=== PATIENT | female | born 1950 | race Caucasian/White ===

== ENCOUNTER 2018-07-28 09:20 | Inpatient (IN) | payer BC, MEDICARE ==
--- OUTSIDE RECORDS SUMMARY | 2018-07-28 09:41 | XMS REPORT | Continuity of Care Document ---
:1950 External Reference #:[id number] Author Name Gloria Manuel Care Team Providers Name Role Phone Bjorn Connor MD Primary Care Physician Unavailable Payers Type Date Identification Numbers Payment Provider Subscriber Effective: Policy Number: [id number] Medicare Blue Ppo [employer] 2015 Group Number: [id number] [address] [address] PayID: [id number] SEEMA Back [id number] Onset: 1991 PayID: [id number] Efis Genesis Marie Daniel [address] [place] [address] PayID: [id number] Medicare D - Drug Plan Genesis Sanchez Advance Directives Type Date Description Status Comment Other Directive 04/25/2015 Power Of Machine Maintenance Repairer Current and Verified Other Directive 04/25/2015 Health Care Proxy Current and Verified Other Directive 04/25/2015 Living Will Current and Verified Problems Date Description Provider Status Onset: 06/13/2015 Essential hypertension Kelsie Lee M.D. Active Onset: 12/10/2015 Hypocalcemia Bjorn Connor M.D. Active Onset: 01/16/2016 Secondary hyperparathyroidism Bjorn Connor M.D. Active Onset: 01/16/2016 Asthma without status asthmaticus Bjorn Connor M.D. Active Onset: 02/15/2016 Disorder of bursa of shoulder Bjorn Connor M.D. Active region Onset: 02/26/2016 Adhesive capsulitis of shoulder Jose Alfredo Mason MD Active Onset: 03/12/2016 Mild recurrent major depression Bjorn Connor M.D. Active Onset: 03/12/2016 Morbid obesity Bjorn Connor M.D. Active Onset: 06/25/2016 Ulcerative colitis Bjorn Connor M.D. Active Onset: 09/17/2016 Peripheral vertigo Bjorn Connor M.D. Active Onset: 10/08/2016 Arthralgia of the pelvic region and Bjorn Connor M.D. Active thigh Onset: 10/22/2016 Candidiasis Bjorn Connor M.D. Active Onset: 03/25/2017 Hypo-osmolality and or hyponatremia Bjorn Connor M.D. Active Onset: 12/04/2017 Anemia Bjorn Connor M.D. Active Onset: 12/04/2017 Thoracic and lumbosacral neuritis Bjorn Connor M.D. Active Onset: 03/05/2018 Encounter for other preprocedural Bjorn Connor M.D. Active examination Onset: 04/14/2018 Obesity Bjorn Connor M.D. Active Onset: 06/13/2015 Preoperative cardiovascular Kelsie Lee M.D. 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 Work Status Not Currently Working Hand Dominance Right-handed ETOH Use Rarely consumes wine 1 glass on special occasions Tobacco Use Start: Unknown Patient has never smoked Recreational Drug Use Denies Drug Use Smoking Status Reviewed: 07/28/18 Patient has never smoked Exercise Type/Frequency Exercises sporadically Allergies, Adverse Reactions, Alerts Date Description Reaction Status Severity Comments 07/25/2013 Codeine Active 12/14/2015 Hair/ Skin And Nails Contact dermatitis Active Mild 01/07/2016 Tape Active 01/07/2016 Adhesive Active Medications Medication Date Status Form Strength Qnty SIG Indications Ordering Provider Meclizine HCL 04/29 Active Tablets 25mg 1 tablet H81.393 every 8 Pachikara hours as MMarkieDMarkie needed for vertigo Duloxetine HCL 03/[address] 60mg 30cap 1 by mouth F33.0 Part s every day Vahid Connor Cyanocobalamin 03/09 Active Solution 1000mcg/M 50uni 1 L ts milliliter Geeta parikh M.D. intramuscu lar [id number] (please give multiuse vials per pateint request) Cpap Mask And 02/17 Active Device 1unit cpap Benny s supplies - Patria, [employer] headgear, cushion, tubing, filters, for sleep apnea dx 780.57 Syringe 2-3 ML 01/08 Active Misc 3ml 30uni to use for ts b12 Geeta injections Vahid 1ML Hydramatic Specialist 01/01 Active Kit 26G X 12uni i inj Imbler Tray 09/08" 1 ML ts weekly Pachikara Bevel 26GX1/2" , ToryDMarkie Fluoxetine HCL 05/07 Active Capsules 20mg 30cap 1 by mouth F33.0 s every day Vahid Connor Proair HFA 03/12 Active Aerosol 108(90Bas 25.5g 2 puffs ih J45.909 e) m every 4 Pachikara mcg/Act hours as , M.DMarkie needed Hydrocodone-Aceta 02/14 Active Tablets 5-325mg 30tab 1 tab M15.0 Bjorn minophen s every 8h Soniyaika as needed , Vahid Symbicort 01/15 Active Aerosol 160-4.5mc 30.6g 2 puff J45.998 Neal g/Act m twice a D. maisha Sevilla M.D.,FACP Metoprolol 12/13 Active Tablets ER 50mg 90tab 1 by mouth Bjorn Succinate ER 24HR s every day Geeta Aden M.D. Aspirin [address] 81mg po qd Unknown /0000 Vitamin D3 00 Active Capsules 5000Unit 30cap 1 po qd Unknown /0000 s Zinc 00 Active 50mg 1 tablet Unknown /0000 po daily Phenytoin Sodium Active Capsules 100mg 360ca 4 by mouth Treva Extended / ps once a day Vahid Fajardo Poly-Iron 150 Active Capsules 150-25-1m 1 by mouth Unknown Forte /0000 g-mcg-mg every day Vitamin C Active Tablets 500mg 1 by mouth Unknown /0000 every day Magnesium Active Capsules 500mg once a day Unknown Potassium Active Tablets ER 20Meq 30tab 1 by mouth Ashanti Chloride ER /0000 s every day Garcia, [employer]TER Fluoxetine HCL Active Capsules 10mg 30cap 1 by mouth Ashanti /0000 s every day Garcia, [employer]TER Calcium Citrate Active Chewtabs 500-500mg 2 tabs Unknown Chewy Bite /0000 -Unit three times a day Furosemide Active Tablets 20mg 90tab 1 by mouth Imbler s every Pachikara morning , M.D. Amlodipine Active Tablets 5mg 90tab take 1 Neal Besylate / s tablet by Georges Sevilla, mouth once M.D.,FACP daily Erythromycin 05/11 Hx Ointment 5mg/GM 3.500 apply 1cm H10.9 gm 3-4 times Pachikara - to both , M.D. 07/28 eyes Cyanocobalamin 01/12 Hx Solution 1000mcg/M 100ml 1 Z00.01 L milliliter Pachikara - s , M.D. 04/28 intramuscu lar [id number] Macrobid 10/20 Hx Capsules 100mg 14cap 1 by mouth R30.0 Neal s twice a D. Roel, - day M.D.,FACP 10/27 Erythromycin 07/01 Hx Ointment 5mg/GM 3.500 apply 1cm H01.009 gm 3-4 times Pachikara - to both , M.D. 10/21 eyes Gabapentin 05/01 Hx Capsules 100mg 30cap take 1 at R51 Treva s bedtime Scotty, - M.D. 01/05 Cyanocobalamin 03/09 Hx Solution 1000mcg/M 50ml 1 L milliliter Pachikara - s , M.D. 03/09 intramuscu lar [id number] (please give multiuse vials per pateint request) Clotrimazole/Beta 10/22 Hx Cream 1-0.05% 30gm apply B37.9 Imbler methasone under Pachikara Dipropionate - breast , M.D. 02/05 twice daily Fluconazole 10/08 Hx Tablets 150mg 2tabs once daily B37.3 Pachikara - , M.D. 12/23 Fluoxetine HCL 09/18 Hx Capsules 10mg 30cap 1 by mouth F33.0 s every day Pachika - , M.D. 10/23 Fluoxetine HCL 09/17 Hx Capsules 10mg 30cap once daily F33.0 Imbler (PMDD) s Pachikara - , M.D. 09/18 Meclizine HCL 09/17 Hx Tablets 12.5mg 60tab 1-2 tab H81.393 s two times Pachikara - a day , M.D. 04/28 Neomycin/Polymyxi 06/26 Hx Suspension 3.5-00214 10ml 5 drops 3 Bjorn n/Hydrocortisone -1 times Pachikara (Otic) - daily , M.D. 07/02 x7 Ciprodex 06/25 Hx Suspension 0.3-0.1% 7.500 4 drops H60.311 ml twice a Pachikara - day 7 days , M.D. 06/26 stop inreased iritation Sertraline HCL 05/07 Hx Tablets 50mg 30tab 1 by mouth s every day Pachika - , M.D. 05/07 Fluoxetine HCL 03/12 Hx Capsules 10mg 30cap 1 tab once F33.0 s daily. Pachika - , M.D. 05/07 Advair Diskus 01/21 Hx Aerosol 100-50mcg 60uni 1 /Dose ts inhalation Pachikara - twice , M.D. 01/22 daily Sertraline HCL 01/15 Hx Tablets 100mg 90tab 1 by mouth F33.0 s every day Pachmuna - , M.D. 03/12 Feosol 12/13 Hx Tablets 200(65Fe) 30tab once daily D64.9 mg s Pachmuna Vahid Mckeon 01/05 Sertraline HCL 12/13 Hx Tablets 50mg 30tab 1.5 by F33.0 s mouth Pachika - every day , Vahid 01/15 Hydrocodone-Aceta 12/13 Hx Tablets 5-325mg 60tab 1 tab M15.0 Bjorn s every 12h Pachmuna - as needed , Vahid 02/14 Metoprolol 12/05 Hx Tablets ER 25mg 30tab 1 by mouth Hussein Succinate 24HR s every day [place]ian, - [employer]TER 12/13 Lialda 11/[address] 1.2gm 180ta 2 tab qd I10 omar Mckeon M.D. 11/22 Sertraline HCL 11/22 Hx Tablets 25mg 30tab 1 by mouth F33.0 s every day Geeta Mckeon M.D. 12/13 Lialda 11/[address] 1.2gm 180ta 2 tab K51.90 omar daily Geeta Mckeon M.D. 07/28 Hydrocodone 11/22 Hx Tablets 2.5-325mg 45tab 12 h prrn M15.0 Bjorn Bitartrate/ s Geeta Mckeon M.D. 12/13 Calcium Carbonate 11/22 Hx Tablets 1250(500C 120ta 2 tab by A) mg omar mouth Geeta - twice a , Vahid Metoprolol 11/24 Hx Tablets ER 25mg 90tab 1 po qd Kelsie Succinate 24HR s Mike Lee M.D. 06/12 Multivitamins Hx Capsules 30cap 1 capsule Unknown /0000 s daily - 11/22 Vitamin C TR/Amee Hx Tablets ER 500mg Unknown Hips /0000 - 12/13 Slow Fe Hx Tablets ER 142(45Fe) 1 by mouth Unknown /0000 mg every day - 01/[address] 60mg 90cap 1 by mouth Part s every day Geeta Mckeon M.D. 07/01 Calcium 600+D3 00 Hx Tablets 600-400mg 2 po qd Unknown /0000 -Unit - 11/22 Arthrotec 75 00/ Hx Tablets DR 75-0.2mg 180ta 1 po bid Unknown /0000 bs - 11/22 Cyanocobalamin Hx Solution 1000mcg/M 50ml 1 Bjorn / L milliliter Geeta parikh M.D. 02/05 intramusc lar [id number] (please give multiuse vials per pateint request) Forteo 00 Hx 20mcg once daily Unknown /0000 - 06/12 Simvastatin Hx Tablets 10mg 30tab 1 po qhs Unknown / s - 06/12 Hydrochlorothiazi Hx Tablets 25mg 1 tablet Raghav de /0000 po daily , - Jennifer, 06/12 Prolia Hx Solution 60mg/ml 60 mg sc Unknown / q6mon ( on - hold 08/1905/23/16) Magnesium 00 Hx Tablets 250mg 1 by mouth Unknown /0000 every day - 08/19 Advair Diskus 00/00 Hx Aerosol 250-50mcg 1 puff by Unknown /0000 /Dose mouth - twice a Combivent 00 Hx Aerosol 20-100mcg 1unit 1 puffs Imbler Respimat /0000 /Act s 4-6 times Pachikara - daily Vahid carrillo 01/15 Hair/Skin/Nails 00/00 Hx Tablets 1 - 2 by Unknown /0000 mouth - every day 12/13 Acetaminophen-Cod 0000 Hx Tablets 300-30mg 1 tab by Unknown eine #3 /0000 mouth q 12 - hrs prn 12/13 Sertraline HCL 0000 Hx Tablets 100mg 1 by mouth Unknown /0000 every day - 10/23 Augmentin 00/00 Hx Tablets 875mg one by Unknown /0000 mouth - every 12 / hours ten days Medications Administered in Office Medication Date Status Form Strength Qnty SIG Indications Ordering Provider Influenza,Unspe 06/10/ Administered Injection Unknown cified 2015 Triamcinolone 02/25/ Administered Injection Kary (Kenalog) 2015 ELVIA Mojica Immunizations CPT Code Status Date Vaccine Reaction Lot # [id number] Given 04/14/2018 Tdap - 4P9CL Tetanus/Diptheria/Acellular Pertussis 16991 Given 06/29/2017 Influenza Virus Vaccine, Quadrivalent, Split, Preservative Free 50430 Given 10/22/2016 Zoster (Zostavax) no immediate reaction [id number] noted .. 10401 Given 10/22/2016 Pneumococcal Conjugate pt tolerated well. no [id number] Vaccine 13 Valent For immediate reaction Intramuscular Use noted .. Vital Signs Date Vital Result Comment 07/28/2018 8:14am Height 60 inches 5'0" Weight 166.00 lb Heart Rate 82 /min BP Systolic 119 mmHg BP Diastolic 84 mmHg Body Temperature 99.0 F O2 % BldC Oximetry 97 % BMI (Body Mass Index) 32.4 kg/m2 05/11/2018 1:23pm Height 60 inches 5'0" Weight 176.00 lb Heart Rate 65 /min BP Systolic 100 mmHg BP Diastolic 76 mmHg Body Temperature 98.7 F O2 % BldC Oximetry 96 % BMI (Body Mass Index) 34.4 kg/m2 04/29/2018 1:37pm Height 60 inches 5'0" Weight 172.00 lb Heart Rate 68 /min BP Systolic 100 mmHg BP Diastolic 62 mmHg Respiratory Rate 16 /min BMI (Body Mass Index) 33.6 kg/m2 04/14/2018 8:25am Height 60 inches 5'0" Weight 175.00 lb Heart Rate 53 /min BP Systolic Sitting 126 mmHg BP Diastolic Sitting 83 mmHg O2 % BldC Oximetry 97 % BMI (Body Mass Index) 34.2 kg/m2 03/02/2018 9:07am Height 60 inches 5'0" Weight 176.00 lb Heart Rate 70 /min BP Systolic 126 mmHg BP Diastolic 80 mmHg Body Temperature 97.0 F O2 % BldC Oximetry 97 % BMI (Body Mass Index) 34.4 kg/m2 01/12/2018 9:53am Height 60 inches 5'0" Weight 176.00 lb Heart Rate 55 /min BP Systolic 118 mmHg BP Diastolic 78 mmHg O2 % BldC Oximetry 97 % BMI (Body Mass Index) 34.4 kg/m2 01/06/2018 10:48am Height 61 inches 5'1" Weight 175.12 lb Heart Rate 60 /min BP Systolic 110 mmHg BP Diastolic 78 mmHg Respiratory Rate 16 /min BMI (Body Mass Index) 33.1 kg/m2 12/04/2017 9:51am Height 61 inches 5'1" Weight 171.38 lb Heart Rate 66 /min BP Systolic Sitting 118 mmHg BP Diastolic Sitting 78 mmHg O2 % BldC Oximetry 97 % BMI (Body Mass Index) 32.4 kg/m2 10/20/2017 3:39pm Weight 177.00 lb Heart Rate 70 /min BP Systolic 132 mmHg BP Diastolic 83 mmHg Body Temperature 98.2 F O2 % BldC Oximetry 98 % 07/09/2017 2:32pm Height 61 inches 5'1" Weight 187.00 lb Heart Rate 76 /min BP Systolic Sitting 122 mmHg BP Diastolic Sitting 88 mmHg Respiratory Rate 14 /min O2 % BldC Oximetry 98 % BMI (Body Mass Index) 35.3 kg/m2 Neck Circumference in inches 13.5 07/01/2017 8:19am Weight 188.00 lb Heart Rate 74 /min BP Systolic Sitting 122 mmHg BP Diastolic Sitting 82 mmHg 05/01/2017 9:29am Height 61 inches 5'1" Weight 181.00 lb Heart Rate 68 /min BP Systolic Sitting 126 mmHg BP Diastolic Sitting 80 mmHg Respiratory Rate 16 /min BMI (Body Mass Index) 34.2 kg/m2 03/25/2017 9:13am Height 60 inches 5'0" Weight 188.00 lb Heart Rate 61 /min BP Systolic Sitting 118 mmHg BP Diastolic Sitting 72 mmHg Body Temperature 97.5 F O2 % BldC Oximetry 95 % BMI (Body Mass Index) 36.7 kg/m2 02/25/2017 1:34pm Height 60 inches 5'0" Weight 187.38 lb Heart Rate 66 /min BP Systolic Sitting 134 mmHg BP Diastolic Sitting 88 mmHg Respiratory Rate 16 /min BMI (Body Mass Index) 36.6 kg/m2 02/06/2017 8:19am Height 60 inches 5'0" Weight 181.00 lb Heart Rate 64 /min BP Systolic Sitting 130 mmHg BP Diastolic Sitting 90 mmHg Respiratory Rate 14 /min BMI (Body Mass Index) 35.3 kg/m2 12/24/2016 8:45am Weight 179.00 lb Heart Rate 64 /min BP Systolic 102 mmHg BP Diastolic 66 mmHg Body Temperature 96.9 F O2 % BldC Oximetry 98 % 10/22/2016 9:22am Weight 186.25 lb Heart Rate 61 /min BP Systolic Sitting 138 mmHg BP Diastolic Sitting 80 mmHg Body Temperature 97.8 F O2 % BldC Oximetry 95 % 10/10/2016 9:11am Height 60 inches 5'0" Weight 185.00 lb Heart Rate 58 /min BP Systolic 123 mmHg BP Diastolic 83 mmHg BMI (Body Mass Index) 36.1 kg/m2 10/08/2016 8:42am Height 62 inches 5'2" Weight 192.00 lb BMI (Body Mass Index) 35.1 kg/m2 09/17/2016 8:02am Height 62 inches 5'2" Weight 190.00 lb Heart Rate 57 /min BP Systolic 110 mmHg BP Diastolic 64 mmHg Body Temperature 98.1 F O2 % BldC Oximetry 97 % BMI (Body Mass Index) 34.7 kg/m2 08/27/2016 2:48pm Height 62 inches 5'2" Weight 193.00 lb Heart Rate 68 /min BP Systolic Sitting 118 mmHg BP Diastolic Sitting 84 mmHg Respiratory Rate 14 /min BMI (Body Mass Index) 35.3 kg/m2 08/20/2016 9:05am Height 62 inches 5'2" Weight 189.00 lb Heart Rate 72 /min BP Systolic Sitting 122 mmHg BP Diastolic Sitting 86 mmHg Respiratory Rate 14 /min BMI (Body Mass Index) 34.6 kg/m2 07/02/2016 8:49am Weight 205.00 lb Heart Rate 62 /min BP Systolic Sitting 124 mmHg BP Diastolic Sitting 82 mmHg Respiratory Rate 15 /min Body Temperature 98.4 F O2 % BldC Oximetry 98 % 06/25/2016 8:47am Weight 211.00 lb Heart Rate 76 /min BP Systolic Sitting 138 mmHg BP Diastolic Sitting 80 mmHg Respiratory Rate 15 /min Body Temperature 97.8 F O2 % BldC Oximetry 98 % 06/19/2016 8:54am Weight 208.00 lb Heart Rate 68 /min BP Systolic Sitting 128 mmHg BP Diastolic Sitting 84 mmHg Respiratory Rate 15 /min Body Temperature 98.4 F O2 % BldC Oximetry 98 % 06/10/2016 10:13am Height 61 inches 5'1" Weight 213.00 lb Heart Rate 68 /min Respiratory Rate 18 /min Pain Level 8 BMI (Body Mass Index) 40.2 kg/m2 05/23/2016 11:06am Height 61 inches 5'1" Weight 216.00 lb Heart Rate 65 /min BP Systolic Sitting 112 mmHg BP Diastolic Sitting 72 mmHg Respiratory Rate 16 /min O2 % BldC Oximetry 95 % BMI (Body Mass Index) 40.8 kg/m2 05/09/2016 9:27am Height 61 inches 5'1" Weight 215.00 lb Heart Rate 60 /min Respiratory Rate 16 /min Pain Level 7 BMI (Body Mass Index) 40.6 kg/m2 05/07/2016 2:00pm Height 59.5 inches 4'11.50" Weight 220.00 lb Heart Rate 66 /min BP Systolic Sitting 136 mmHg BP Diastolic Sitting 85 mmHg Respiratory Rate 15 /min Body Temperature 97.3 F O2 % BldC Oximetry 98 % BMI (Body Mass Index) 43.7 kg/m2 03/19/2016 2:09pm Heart Rate 63 /min BP Systolic Sitting 120 mmHg BP Diastolic Sitting 60 mmHg Body Temperature 96.4 F O2 % BldC Oximetry 98 % 03/12/2016 9:18am Height 61 inches 5'1" Weight 221.00 lb Heart Rate 74 /min BP Systolic Sitting 142 mmHg BP Diastolic Sitting 98 mmHg Body Temperature 98.4 F O2 % BldC Oximetry 95 % BMI (Body Mass Index) 41.8 kg/m2 02/26/2016 2:35pm Height 61 inches 5'1" Weight 216.00 lb Pain Level 9 at worst BMI (Body Mass Index) 40.8 kg/m2 02/15/2016 8:47am Heart Rate 69 /min BP Systolic Sitting 151 mmHg BP Diastolic Sitting 92 mmHg Body Temperature 97.5 F 01/16/2016 7:49am Heart Rate 71 /min BP Systolic Sitting 124 mmHg BP Diastolic Sitting 77 mmHg Body Temperature 98.1 F O2 % BldC Oximetry 99 % 01/07/2016 9:22am Height 61 inches 5'1" Weight 216.38 lb Heart Rate 76 /min BP Systolic Sitting 128 mmHg BP Diastolic Sitting 80 mmHg Respiratory Rate 18 /min BMI (Body Mass Index) 40.9 kg/m2 12/14/2015 8:16am Heart Rate 70 /min BP Systolic Sitting 148 mmHg BP Diastolic Sitting 87 mmHg Body Temperature 98.2 F O2 % BldC Oximetry 95 % 11/23/2015 8:43am Height 60.25 inches 5'0.25" Weight 204.00 lb Heart Rate 89 /min BP Systolic Sitting 162 mmHg BP Diastolic Sitting 100 mmHg Body Temperature 98.6 F O2 % BldC Oximetry 98 % BMI (Body Mass Index) 39.5 kg/m2 06/13/2015 12:53pm Height 60.25 inches 5'0.25" Weight 210.00 lb without shoes Heart Rate 78 /min BP Systolic Sitting 128 mmHg LA lg cuff BP Diastolic Sitting 90 mmHg LA lg cuff BP Systolic Standing 136 mmHg LA lg cuff BP Diastolic Standing 90 mmHg LA lg cuff Respiratory Rate 17 /min BMI (Body Mass Index) 40.7 kg/m2 Ejection Fraction 67% date 12/01/12 ECHO Results Test Date Facility Test Result H/L Range Note Laboratory test 05/12/2018 [facility] Ferritin 10.1 ng/mL Low 11-[address] [place] [address] [phone] CBC Auto Diff 05/12/2018 [facility] White Blood 4.3 10^3/uL N 3.5-10.[address] [place] [address] [phone] Red Blood Count 3.93 10^6/uL Low 4.00-5.40 Hemoglobin 12.4 g/dL N 12.0-16.0 Hematocrit 38 % N 35-47 Mean Corpuscular Volume 96 fL N 80-97 Mean Corpuscular Hemoglobin 32 pg High 27-31 Mean Corpuscular HGB Conc 33 g/dL N 31-36 Red Cell Distribution Width 14 % N 10.5-15 Platelet Count 249 10^3/uL N 150-450 Mean Platelet Volume 7.6 um3 N 7.4-10.4 Abs Neutrophils 2.9 10^3/uL N 1.5-7.7 Abs Lymphocytes 0.8 10^3/uL Low 1.0-4.8 Abs Monocytes 0.4 10^3/uL N 0-0.8 Abs Eosinophils 0.1 10^3/uL N 0-0.6 Abs Basophils 0.1 10^3/uL N 0-0.2 Abs Nucleated RBC 0 10^3/uL Granulocyte % 67.2 % N 38-83 Lymphocyte % 19.6 % Low 25-47 Monocyte % 9.2 % High 0-7 Eosinophil % 2.6 % N 0-6 Basophil % 1.4 % N 0-2 Nucleated Red Blood Cells % 0 Iron & Iron Binding 05/12/2018 [facility] Iron 59 g/dL N 50- [address] [place] [address] [phone] Unsaturated Iron Binding 379 g/dL Total Iron Binding Capacity 438 g/dL N 250-450 Transferrin 313 mg/dL N 203-362 % Iron Saturation 13 % Low 15-55 Comp Metabolic Panel 05/12/2018 [facility] Sodium 139 mmol/L N 135-[address] [place] [address] [phone] Potassium 4.5 mmol/L N 3.5-5.0 Chloride 109 mmol/L N 101-111 Co2 Carbon Dioxide 25 mmol/L N 22-32 Anion Gap 5 mmol/L N 2-11 Glucose 91 mg/dL N 70-100 Blood Urea Nitrogen 26 mg/dL High 6-24 Creatinine 1.19 mg/dL High 0.51-0.95 BUN/Creatinine Ratio 21.8 High 8-20 Calcium 9.3 mg/dL N 8.6-10.3 Total Protein 6.6 g/dL N 6.4-8.9 Albumin 4.0 g/dL N 3.2-5.2 Globulin 2.6 g/dL N 2-4 Albumin/Globulin Ratio 1.5 N 1-3 Total Bilirubin 0.30 mg/dL N 0.2-1.0 Alkaline Phosphatase 145 U/L High 34-104 Alt 19 U/L N 7-52 Ast 20 U/L N 13-39 Egfr Non- 45.4 >60 Egfr 54.9 >60 1 CBC Auto Diff 04/08/2018 [facility] White Blood 4.6 10^3/uL N 3.5-10.[address] [place] [address] [phone] Red Blood Count 3.72 10^6/uL Low 4.00-5.40 Hemoglobin 11.8 g/dL Low 12.0-16.0 Hematocrit 36 % N 35-47 Mean Corpuscular Volume 97 fL N 80-97 Mean Corpuscular Hemoglobin 32 pg High 27-31 Mean Corpuscular HGB Conc 33 g/dL N 31-36 Red Cell Distribution Width 14 % N 10.5-15 Platelet Count 204 10^3/uL N 150-450 Mean Platelet Volume 8.5 um3 N 7.4-10.4 Abs Neutrophils 3.1 10^3/uL N 1.5-7.7 Abs Lymphocytes 0.9 10^3/uL Low 1.0-4.8 Abs Monocytes 0.4 10^3/uL N 0-0.8 Abs Eosinophils 0.2 10^3/uL N 0-0.6 Abs Basophils 0.1 10^3/uL N 0-0.2 Abs Nucleated RBC 0 10^3/uL Granulocyte % 66.7 % N 38-83 Lymphocyte % 18.6 % Low 25-47 Monocyte % 8.6 % High 0-7 Eosinophil % 4.8 % N 0-6 Basophil % 1.3 % N 0-2 Nucleated Red Blood Cells % 0 Comp Metabolic Panel 04/08/2018 [facility] Sodium 138 mmol/L N 135-145 [address] [place] [address] [phone] Potassium 5.0 mmol/L N 3.5-5.0 Chloride 105 mmol/L N 101-111 Co2 Carbon Dioxide 25 mmol/L N 22-32 Anion Gap 8 mmol/L N 2-11 Glucose 87 mg/dL N 70-100 Blood Urea Nitrogen 25 mg/dL High 6-24 Creatinine 1.19 mg/dL High 0.51-0.95 BUN/Creatinine Ratio 21.0 High 8-20 Calcium 8.6 mg/dL N 8.6-10.3 Total Protein 5.7 g/dL Low 6.4-8.9 Albumin 3.6 g/dL N 3.2-5.2 Globulin 2.1 g/dL N 2-4 Albumin/Globulin Ratio 1.7 N 1-3 Total Bilirubin 0.20 mg/dL N 0.2-1.0 Alkaline Phosphatase 133 U/L High 34-104 Alt 18 U/L N 7-52 Ast 18 U/L N 13-39 Egfr Non- 45.4 >60 Egfr 54.9 >60 2 Laboratory test 04/08/2018 [facility] TSH (Thyroid 5.62 High 0.34-5.[address] Stim Horm) mcIU/mL [place], [place] [id number] [phone] Cortisol 7.33 g/dL 3 Lipid Profile 04/08/2018 [facility] Triglycerides 87 mg/dL 4 (Trig/Chol/HDL) [address] [place] [address] [phone] Cholesterol 216 mg/dL 5 HDL Cholesterol 90.0 mg/dL 6 LDL Cholesterol 109 mg/dL 7 Laboratory test 03/18/2018 [facility] Miscellaneous Test See Comment [address] [place] [address] [phone] Pthi 03/18/2018 [facility] PTH Intact 23.2 pmol/L High 1.3- [address]3 [place] [address] [phone] Calcium (PTH Intact) 8.4 mg/dL Low 8.6-10.3 Laboratory test 03/18/2018 [facility] Magnesium 2.0 mg/dL N 1.9-2.7 finding [address] [place] [address] [phone] Renal Function Panel 03/18/2018 [facility] Albumin 3.5 g/dL N 3.2-5.2 [address] [place] [address] [phone] Calcium 8.4 mg/dL Low 8.6-10.3 Co2 Carbon Dioxide 24 mmol/L N 22-32 Chloride 108 mmol/L N 101-111 Glucose 83 mg/dL N 70-100 Phosphorus 3.4 mg/dL N 2.5-5.0 Potassium 4.4 mmol/L N 3.5-5.0 Sodium 139 mmol/L N 135-145 Blood Urea Nitrogen 23 mg/dL N 6-24 Anion Gap 7 mmol/L N 2-11 Creatinine 0.93 mg/dL N 0.51-0.95 BUN/Creatinine Ratio 24.7 High 8-20 Egfr Non- 60.3 >60 Egfr 73.0 >60 9 Laboratory test 03/18/2018 [facility] Creatinine 20.29 mg/dL finding [address] [place] [address] [phone] Laboratory test 01/06/2018 [facility] Calcium Ionized 4.65 mg/ dL N 4.65-[address] [place] [address] [phone] Urine Random Creatinine 54.88 mg/dL Renal Function Panel 01/06/2018 [facility] Albumin 3.6 g/dL N 3.2-5.[address] [place] [address] [phone] Calcium 8.6 mg/dL N 8.6-10.3 Co2 Carbon Dioxide 21 mmol/L Low 22-32 Chloride 107 mmol/L N 101-111 Glucose 84 mg/dL N 70-100 Phosphorus 4.1 mg/dL N 2.5-5.0 Potassium 4.3 mmol/L N 3.5-5.0 Sodium 138 mmol/L Low 139-145 Blood Urea Nitrogen 28 mg/dL High 6-24 Anion Gap 10 mmol/L N 2-11 Creatinine 1.18 mg/dL High 0.51-0.95 BUN/Creatinine Ratio 23.7 High 8-20 Egfr Non- 46.0 >60 Egfr 59.1 >60 11 Laboratory test 01/06/2018 [facility] Magnesium 2.0 mg/dL N 1.9-2.[address] [place] [address] [phone] Vitamin D Total 25(Oh) 38.8 ng/mL N 20-50 Pthi 01/06/2018 [facility] Calcium (PTH Intact) 8.8 mg/dL N 8.6-[address] [place] [address] [phone] PTH Intact 25.5 pmol/L High 1.3-9.3 Creatinine 24HR 01/06/2018 [facility] Urine Collection [address] [place] [address] [phone] Urine Total Volume 2200 mL Urine Creatinine/24HR 1207.36 mg/24Hr N 600-1800 Laboratory test 01/06/2018 [facility] Miscellaneous Test See Comment [address] [place] [address] [phone] Vitamin D, 1,25 Dihydroxy 55 pg/mL 18-78 13 Urine Culture And 10/20/2017 [facility] Urine Culture SEE RESULT [address] [place] [address] [phone] Ua Routine 10/20/2017 [facility] Ua Specific 1.010 Embarrass Ua PH 5 Ua Color yellow Ua Appera cloudy Ua WBC + Ua Protein trace Ua Glucose normal Ua Ketones neg Ua Bilirubin neg Ua Urobilinogen normal Ua Nitrite neg Ua Occult Blood trace Laboratory test 09/30/2017 [facility] Phenytoin 17.4 g/mL N 10-[address] (Dilantin) [place] [address] [phone] Pthi 04/03/2017 [facility] Calcium (PTH 8.9 mg/dL N 8.6-10.[address] [place]) [place] [address] [phone] PTH Intact 20.3 pmol/L High 1.3-9.3 Renal Function Panel 04/03/2017 [facility] Albumin 4.2 g/dL N 3.2-5.[address] [place] [address] [phone] Calcium 9.0 mg/dL N 8.6-10.3 Co2 Carbon Dioxide 25 mmol/L N 22-32 Chloride 105 mmol/L N 101-111 Glucose 84 mg/dL N 70-100 Phosphorus 3.6 mg/dL N 2.5-5.0 Potassium 3.8 mmol/L N 3.5-5.0 Sodium 138 mmol/L N 133-145 Blood Urea Nitrogen 26 mg/dL High 6-24 Anion Gap 8 mmol/L N 2-11 Creatinine 1.26 mg/dL High 0.51-0.95 BUN/Creatinine Ratio 20.6 High 8-20 Egfr Non- 42.6 N >60 Egfr 54.8 N >60 15 Laboratory test 04/03/2017 [facility] Magnesium 2.1 mg/dL N 1.9-2.[address] [place] [address] [phone] Alkaline Phosphatase 152 U/L High 34-104 Cortisol 11.00 g/dL N 16 TSH (Thyroid Stim Horm) 2.76 mcIU/mL N 0.34-5.60 Free T4 (Free Thyroxine) 0.56 ng/dL Low 0.61-1.12 Folic Acid (Folate) 5.70 ng/mL N >3.99 Vitamin B12 669 pg/mL N 180-914 17 Vitamin D Total 25(Oh) 53.8 ng/mL High 30-50 Creatinine Random Urine 25.96 mg/dL N Miscellaneous Test See Comment N 18 Copper, Serum 0.72 g/mL Abnormal 0.75-1.45 19 Zinc Serum 1.13 g/mL Abnormal 0.66-1.10 20 Celiac Panel 04/03/2017 [facility] Tissue Transglutaminase <1.2 U/mL N [address] [place] [address] [phone] Immunoglobulin A 106 mg/dL N 61 - 356 Celiac Interpretation See Comment N 22 NTX (N-Telopeptide) 04/03/2017 [facility] Urine Creatinine 42 mg /dL [place]rine [address] [place] [address] [phone] NTX 137 nmol/L N Ur NTX-Telo 37 nmol/mmol N 23 Laboratory test 04/03/2017 [facility] Vitamin A 49.1 g/dL N 32.5-78.[address] (Retinol) [place] [address] [phone] Vitamin K Level 0.25 ng/mL N 0.10-2.20 25 Vitamin E Level 13.4 mg/L N 5.5 - 17.0 26 Vitamin D, 1,25 Dihydroxy 45 pg/mL N 18-78 27 Basic Metabolic Panel 04/02/2017 [facility] Sodium 136 mmol/L N 133-[address] [place] [address] [phone] Potassium 4.4 mmol/L N 3.5-5.0 Chloride 104 mmol/L N 101-111 Co2 Carbon Dioxide 25 mmol/L N 22-32 Anion Gap 7 mmol/L N 2-11 Glucose 83 mg/dL N 70-100 Blood Urea Nitrogen 27 mg/dL High 6-24 Creatinine 1.28 mg/dL High 0.51-0.95 BUN/Creatinine Ratio 21.1 High 8-20 Calcium 9.0 mg/dL N 8.6-10.3 Egfr Non- 41.9 N >60 Egfr 53.8 N >60 28 Comp Metabolic Panel 03/23/2017 [facility] Sodium 130 mmol/L Low 133-[address] [place] [address] [phone] Potassium 4.5 mmol/L N 3.5-5.0 Chloride 95 mmol/L Low 101-111 Co2 Carbon Dioxide 31 mmol/L N 22-32 Anion Gap 4 mmol/L N 2-11 Glucose 87 mg/dL N 70-100 Blood Urea Nitrogen 26 mg/dL High 6-24 Creatinine 1.21 mg/dL High 0.51-0.95 BUN/Creatinine Ratio 21.5 High 8-20 Calcium 9.0 mg/dL N 8.6-10.3 Total Protein 6.2 g/dL Low 6.4-8.9 Albumin 3.9 g/dL N 3.2-5.2 Globulin 2.3 g/dL N 2-4 Albumin/Globulin Ratio 1.7 N 1-3 Total Bilirubin 0.30 mg/dL N 0.2-1.0 Alkaline Phosphatase 140 U/L High 34-104 Alt 18 U/L N 7-52 Ast 21 U/L N 13-39 Egfr Non- 44.7 N >60 Egfr 57.4 N >60 29 Lipid Profile 03/23/2017 [facility] Triglycerides 71 mg/dL N 30 (Trig/Chol/HDL) [address] [place] [address] [phone] Cholesterol 226 mg/dL N 31 HDL Cholesterol 91.6 mg/dL N 32 LDL Cholesterol 120 mg/dL N 33 Liver Function 02/24/2017 [facility] Total Protein 5.8 g/dL Low 6.4-8.[address] [place] [address] [phone] Albumin 3.6 g/dL N 3.2-5.2 Globulin 2.2 g/dL N 2-4 Albumin/Globulin Ratio 1.6 N 1-3 Total Bilirubin 0.30 mg/dL N 0.2-1.0 Direct Bilirubin 0.10 mg/dL N 0.03-0.18 Indirect Bilirubin 0.2 mg/dL Low 0.3-1.0 Alkaline Phosphatase 123 U/L High 34-104 Alt 19 U/L N 7-52 Ast 21 U/L N 13-39 Laboratory 02/24/2017 [facility] Phenytoin 15.3 g/mL N 10- [address] (Dilantin) [place] [address] [phone] Laboratory 12/25/2016 [facility] Hepatitis C Nonreactive N Nonreactive test finding [address] [place] [address] [phone] Laboratory 06/26/2016 [facility] Stool Culture SEE RESULT [address] [place] [address] [phone] Comp 06/26/2016 [facility] Sodium 137 mmol/L N 133-[address] [place] [address] [phone] Potassium 3.6 mmol/L N 3.5-5.0 Chloride 107 mmol/L N 101-111 Co2 Carbon Dioxide 22 mmol/L N 22-32 Anion Gap 8 mmol/L N 2-11 Glucose 120 mg/dL High 70-100 Blood Urea Nitrogen 16 mg/dL N 6-24 Creatinine 1.16 mg/dL High 0.51-0.95 BUN/Creatinine Ratio 13.8 N 8-20 Calcium 9.1 mg/dL N 8.6-10.3 Total Protein 6.0 g/dL Low 6.4-8.9 Albumin 3.7 g/dL N 3.2-5.2 Globulin 2.3 g/dL N 2-4 Albumin/Globulin Ratio 1.6 N 1-3 Total Bilirubin 0.30 mg/dL N 0.2-1.0 Alkaline Phosphatase 132 U/L High 34-104 Alt 22 U/L N 7-52 Ast 23 U/L N 13-39 Egfr Non- 47.0 N >60 Egfr 60.5 N >60 36 CBC Auto Diff 06/26/2016 [facility] White Blood 5.4 10^3/uL N 3.5-10.[address] [place] [address] [phone] Red Blood Count 3.73 10^6/uL Low 4.0-5.4 Hemoglobin 11.9 g/dL Low 12.0-16.0 Hematocrit 36 % N 35-47 Mean Corpuscular Volume 98 fL High 80-97 Mean Corpuscular Hemoglobin 32 pg High 27-31 Mean Corpuscular HGB Conc 33 g/dL N 31-36 Red Cell Distribution Width 14 % N 10.5-15 Platelet Count 252 10^3/uL N 150-450 Mean Platelet Volume 8 um3 N 7.4-10.4 Abs Neutrophils 4.0 10^3/uL N 1.5-7.7 Abs Lymphocytes 0.8 10^3/uL Low 1.0-4.8 Abs Monocytes 0.4 10^3/uL N 0-0.8 Abs Eosinophils 0.1 10^3/uL N 0-0.6 Abs Basophils 0 10^3/uL N 0-0.2 Abs Nucleated RBC 0 10^3/uL N Granulocyte % 74.8 % N 38-83 Lymphocyte % 15.2 % Low 25-47 Monocyte % 7.3 % N 1-9 Eosinophil % 2.0 % N 0-6 Basophil % 0.7 % N 0-2 Nucleated Red Blood Cells % 0 N Laboratory test 06/19/2016 [facility] Magnesium 2.2 mg/dL N 1.9-2.[address] [place] [address] [phone] Laboratory test 06/19/2016 [facility] Phenytoin 18.6 N 10-20 [address] (Dilantin) g/[place] [address] [phone] Laboratory test 06/19/2016 [facility] Vitamin B12 713 pg/mL N 180-914 [address] [place] [address] [phone] CBC Auto Diff 06/19/2016 [facility] White Blood 4.5 N 3.5- 10.[address] Count 10^3/[place] [address] [phone] Red Blood Count 3.96 10^6/uL Low 4.0-5.4 Hemoglobin 12.5 g/dL N 12.0-16.0 Hematocrit 39 % N 35-47 Mean Corpuscular Volume 98 fL High 80-97 Mean Corpuscular Hemoglobin 32 pg High 27-31 Mean Corpuscular HGB Conc 32 g/dL N 31-36 Red Cell Distribution Width 14 % N 10.5-15 Platelet Count 232 10^3/uL N 150-450 Mean Platelet Volume 8 um3 N 7.4-10.4 Abs Neutrophils 3.3 10^3/uL N 1.5-7.7 Abs Lymphocytes 0.6 10^3/uL Low 1.0-4.8 Abs Monocytes 0.4 10^3/uL N 0-0.8 Abs Eosinophils 0.1 10^3/uL N 0-0.6 Abs Basophils 0 10^3/uL N 0-0.2 Abs Nucleated RBC 0 10^3/uL N Granulocyte % 73.3 % N 38-83 Lymphocyte % 13.9 % Low 25-47 Monocyte % 8.9 % N 1-9 Eosinophil % 3.0 % N 0-6 Basophil % 0.9 % N 0-2 Nucleated Red Blood Cells % 0.1 N Inr/Protime 06/19/2016 [facility] Inr 0.91 N 0.89-1.[address] [place] [address] [phone] Laboratory test 05/06/2016 [facility] Vitamin D 63.7 High 30- [address] Total 25(Oh) ng/[place] [address] [phone] Comp Metabolic 05/06/2016 [facility] Sodium 140 N 133-[address] mmol/[place] [address] [phone] Potassium 3.8 mmol/L N 3.5-5.0 Chloride 105 mmol/L N 101-111 Co2 Carbon Dioxide 26 mmol/L N 22-32 Anion Gap 9 mmol/L N 2-11 Glucose 84 mg/dL N 70-100 Blood Urea Nitrogen 28 mg/dL High 6-24 Creatinine 1.22 mg/dL High 0.51-0.95 BUN/Creatinine Ratio 23.0 High 8-20 Calcium 9.2 mg/dL N 8.6-10.3 Total Protein 6.3 g/dL Low 6.4-8.9 Albumin 3.8 g/dL N 3.2-5.2 Globulin 2.5 g/dL N 2-4 Albumin/Globulin Ratio 1.5 N 1-3 Total Bilirubin 0.30 mg/dL N 0.2-1.0 Alkaline Phosphatase 104 U/L N 34-104 Alt 24 U/L N 7-52 Ast 20 U/L N 13-39 Egfr Non- 44.4 N >60 Egfr 57.1 N >60 39 Laboratory test 04/01/2016 [facility] Reference Lab See Comment N [address] [place] [address] [phone] Basic Metabolic 02/26/2016 [facility] Sodium 138 mmol/L N 133- [address] [place] [address] [phone] Potassium 4.0 mmol/L N 3.5-5.0 Chloride 104 mmol/L N 101-111 Co2 Carbon Dioxide 25 mmol/L N 22-32 Anion Gap 9 mmol/L N 2-11 Glucose 97 mg/dL N 70-100 Blood Urea Nitrogen 25 mg/dL High 6-24 Creatinine 1.48 mg/dL High 0.51-0.95 BUN/Creatinine Ratio 16.9 N 8-20 Calcium 8.5 mg/dL Low 8.6-10.3 Egfr Non- 35.6 N >60 Egfr 45.8 N >60 41 Laboratory 02/26/2016 [facility] Vitamin D, 80 pg/mL Abnormal 18-78 [address],25 [place] [address] Dihydroxy [phone] Laboratory 02/15/2016 [facility] TSH (Thyroid 5.43 N 0.34-5.6 [address] [facility] [address] Stim Horm) ?IU/mL 0 [place] [address] [phone] Free T4 (Free Thyroxine) 0.59 ng/dL Low 0.61-1.12 44 Basic Metabolic Panel 02/15/2016 [facility] Sodium 136 mmol/L N 133-[address] [place] [address] [phone] Potassium 4.8 mmol/L N 3.5-5.0 Chloride 102 mmol/L N 101-111 Co2 Carbon Dioxide 27 mmol/L N 22-32 Anion Gap 7 mmol/L N 2-11 Glucose 88 mg/dL N 70-100 Blood Urea Nitrogen 23 mg/dL N 6-24 Creatinine 1.25 mg/dL High 0.51-0.95 BUN/Creatinine Ratio 18.4 N 8-20 Calcium 8.8 mg/dL N 8.6-10.3 Egfr Non- 43.3 N >60 Egfr 55.7 N >60 45 Laboratory test 01/18/2016 [facility] Phenytoin 4.0 g/mL Low 10-[address] (Dilantin) [place] [address] [phone] TSH (Thyroid Stim Horm) 5.52 ?IU/mL N 0.34-5.60 Free T4 (Free Thyroxine) 0.62 ng/dL N 0.61-1.12 Laboratory test 01/18/2016 [facility] Phosphorus 3.4 mg/dL N 2.5-5.0 finding [address] [place] [address] [phone] Vitamin D Total 25(Oh) 39.1 ng/mL N 30-50 Calcium 8.2 mg/dL Low 8.6-10.3 Calcium Ionized 4.37 mg/dL Low 4.65-5.28 Calcium,24 01/18/2016 [facility] Urine Calcium <15 mg/24h N < 200 Hour,Urine [address] [place] [address] [phone] Urine Collection Duration 24 h N Urine Volume 1550 mL N Urine Calcium Conc <1 mg/dL N 46 Comp Metabolic Panel 01/18/2016 [facility] Sodium 134 mmol/L N 133-145 [address] [place] [address] [phone] Potassium 4.7 mmol/L N 3.5-5.0 Chloride 105 mmol/L N 101-111 Co2 Carbon Dioxide 21 mmol/L Low 22-32 Anion Gap 8 mmol/L N 2-11 Glucose 80 mg/dL N 70-100 Blood Urea Nitrogen 23 mg/dL N 6-24 Creatinine 1.17 mg/dL High 0.51-0.95 BUN/Creatinine Ratio 19.7 N 8-20 Total Protein 6.8 g/dL N 6.4-8.9 Albumin 4.2 g/dL N 3.2-5.2 Globulin 2.6 g/dL N 2-4 Albumin/Globulin Ratio 1.6 N 1-3 Total Bilirubin 0.30 mg/dL N 0.2-1.0 Alkaline Phosphatase 79 U/L N 34-104 Alt 16 U/L N 7-52 Ast 20 U/L N 13-39 Egfr Non- 46.7 N >60 Egfr 60.1 N >60 47 Vitamin B12 And 12/04/2015 [facility] Vitamin B12 461 pg/mL N 180-914 48 Folate Serum [address] [place] [address] [phone] Folic Acid (Folate) 13.66 ng/mL N >3.99 Comp Metabolic Panel 12/04/2015 [facility] Sodium 138 mmol/L N 133-145 [address] [place] [address] [phone] Potassium 3.9 mmol/L N 3.5-5.0 Chloride 105 mmol/L N 101-111 Co2 Carbon Dioxide 27 mmol/L N 22-32 Anion Gap 6 mmol/L N 2-11 Glucose 87 mg/dL N 70-100 Blood Urea Nitrogen 18 mg/dL N 6-24 Creatinine 1.16 mg/dL High 0.51-0.95 BUN/Creatinine Ratio 15.5 N 8-20 Calcium 8.7 mg/dL N 8.6-10.3 Total Protein 6.1 g/dL Low 6.4-8.9 Albumin 3.8 g/dL N 3.2-5.2 Globulin 2.3 g/dL N 2-4 Albumin/Globulin Ratio 1.7 N 1-3 Total Bilirubin 0.20 mg/dL N 0.2-1.0 Alkaline Phosphatase 105 U/L High 34-104 Alt 19 U/L N 7-52 Ast 19 U/L N 13-39 Egfr Non- 47.2 N >60 Egfr 60.7 N >60 49 Lipid Profile 12/04/2015 [facility] Triglycerides 83 mg/dL N 50 (Trig/Chol/HDL) [address] [place] [address] [phone] Cholesterol 233 mg/dL N 51 HDL Cholesterol 83.2 mg/dL N 52 LDL Cholesterol 133 mg/dL N 53 CBC Auto Diff 12/04/2015 [facility] White Blood 3.9 10^3/uL N 3.5-10.[address] [place] [address] [phone] Red Blood Count 3.38 10^6/uL Low 4.0-5.4 Hemoglobin 8.6 g/dL Low 12.0-16.0 Hematocrit 29 % Low 35-47 Mean Corpuscular Volume 84 fL N 80-97 Mean Corpuscular Hemoglobin 25 pg Low 27-31 Mean Corpuscular HGB Conc 30 g/dL Low 31-36 Red Cell Distribution Width 16 % High 10.5-15 Platelet Count 358 10^3/uL N 150-450 Mean Platelet Volume 7 um3 Low 7.4-10.4 Abs Neutrophils 2.4 10^3/uL N 1.5-7.7 Abs Lymphocytes 0.8 10^3/uL Low 1.0-4.8 Abs Monocytes 0.3 10^3/uL N 0-0.8 Abs Eosinophils 0.3 10^3/uL N 0-0.6 Abs Basophils 0 10^3/uL N 0-0.2 Abs Nucleated RBC 0 10^3/uL N Granulocyte % 61.2 % N 38-83 Lymphocyte % 21.9 % Low 25-47 Monocyte % 7.8 % N 1-9 Eosinophil % 8.2 % High 0-6 Basophil % 0.9 % N 0-2 Nucleated Red Blood Cells % 0.1 N Laboratory test 12/04/2015 [facility] Ferritin < 10.0 ng/mL Low 11-307 finding [address] [place] [address] [phone] Haptoglobin 142 mg/dL N 30 - 200 54 Iron & Iron Binding 12/04/2015 [facility] Iron 22 g/dL Low 50-212 Capacity [address] [place] [address] [phone] Unsaturated Iron Binding 483 g/dL N Total Iron Binding Capacity 505 g/dL High 250-450 % Iron Saturation 4 % Low 15-55 Laboratory test 12/04/2015 [facility] Vitamin D 39.1 ng/mL N 30-50 finding 101 [facility] Total 25(Oh) [place] [address] [phone] Retic Count 12/04/2015 [facility] Retic Count 1.4 % N 0.5-1.5 [address] [place] [address] [phone] Corrected Retic Count 0.9 % N 0.5-1.5 Maturation Factor Retic 2.0 N Retic Index 0.50 N Mean Retic Volume 110.5 N Immature Retic Fraction 0.44 N RBC Retic Count 3.38 10^6/uL Low 4.6-6.2 Hematocrit for Retic CNT 29 % Low 35-47 Laboratory test 12/04/2015 [facility] LDH 196 U/L N 140-271 finding [address] [place] [address] [phone] Laboratory test 11/20/2015 [facility] Ammonia 28 ?mol/L N 16- 53 55 finding [address] [place] [address] [phone] Blood Culture SEE RESULT BELOW 56 Type & Screen 11/20/2015 [facility] Patient Blood Type A Positive N [address] [place] [address] [phone] Antibody Screen NEGATIVE N Laboratory test 11/20/2015 [facility] C Reactive 1.52 mg/L N < 5.[address] [place] [address] [phone] Troponin-I (TnI) 0.00 ng/mL N <0.03 58 Lipid Profile 11/20/2015 [facility] Triglycerides 78 mg/dL N 59 (Trig/Chol/HDL) [address] [place] [address] [phone] Cholesterol 189 mg/dL N 60 HDL Cholesterol 74.7 mg/dL N 61 LDL Cholesterol 99 mg/dL N 62 Comp Metabolic Panel 11/20/2015 [facility] Sodium 136 mmol/L N 133-[address] [place] [address] [phone] Potassium 3.8 mmol/L N 3.5-5.0 Chloride 104 mmol/L N 101-111 Co2 Carbon Dioxide 23 mmol/L N 22-32 Anion Gap 9 mmol/L N 2-11 Glucose 95 mg/dL N 70-100 Blood Urea Nitrogen 20 mg/dL N 6-24 Creatinine 1.18 mg/dL High 0.51-0.95 BUN/Creatinine Ratio 16.9 N 8-20 Calcium 7.0 mg/dL Low 8.6-10.3 Total Protein 6.9 g/dL N 6.4-8.9 Albumin 4.0 g/dL N 3.2-5.2 Globulin 2.9 g/dL N 2-4 Albumin/Globulin Ratio 1.4 N 1-3 Total Bilirubin 0.20 mg/dL N 0.2-1.0 Alkaline Phosphatase 81 U/L N 34-104 Alt 18 U/L N 7-52 Ast 21 U/L N 13-39 Egfr Non- 46.3 N >60 Egfr 59.5 N >60 63 Laboratory test 11/20/2015 [facility] Partial 29.3 seconds N 26.0-36.[address] [place] [address] PTT [phone] Lactic Acid 1.4 mmol/L N 0.5-2.0 64 Inr/Protime 11/20/2015 [facility] Inr 0.96 N 0.89-1.[address] [place] [address] [phone] CBC Auto Diff 11/20/2015 [facility] White Blood 6.4 10^3/uL N 3.5-10.[address] [place] [address] [phone] Red Blood Count 3.28 10^6/uL Low 4.0-5.4 Hemoglobin 8.5 g/dL Low 12.0-16.0 Hematocrit 28 % Low 35-47 Mean Corpuscular Volume 85 fL N 80-97 Mean Corpuscular Hemoglobin 26 pg Low 27-31 Mean Corpuscular HGB Conc 31 g/dL N 31-36 Red Cell Distribution Width 16 % High 10.5-15 Platelet Count 351 10^3/uL N 150-450 Mean Platelet Volume 7 um3 Low 7.4-10.4 Abs Neutrophils 4.5 10^3/uL N 1.5-7.7 Abs Lymphocytes 1.0 10^3/uL N 1.0-4.8 Abs Monocytes 0.6 10^3/uL N 0-0.8 Abs Eosinophils 0.3 10^3/uL N 0-0.6 Abs Basophils 0.1 10^3/uL N 0-0.2 Abs Nucleated RBC 0 10^3/uL N Granulocyte % 70.4 % N 38-83 Lymphocyte % 15.0 % Low 25-47 Monocyte % 8.9 % N 1-9 Eosinophil % 4.5 % N 0-6 Basophil % 1.2 % N 0-2 Nucleated Red Blood Cells % 0.1 N 1 Because ethnic data is not always readily available, this report includes an eGFR for both -Americans and non- Americans. The National Kidney Disease Education Program (NKDEP) does not endorse the use of the MDRD equation for patients that are not between the ages of 18 and 70, are , have extremes of body size, muscle mass, or nutritional status, or are non- or non-. According to the National Kidney Foundation, irrespective of diagnosis, the stage of the disease is based on the level of kidney function: Stage Description GFR(mL/min/1.73 m(2)) 1 Kidney damage with normal or decreased GFR 90 2 Kidney damage with mild decrease in GFR 60-89 3 Moderate decrease in GFR 30-59 4 Severe decrease in GFR 15-29 5 Kidney failure <15 (or dialysis) 2 Because ethnic data is not always readily available, this report includes an eGFR for both -Americans and non- Americans. The National Kidney Disease Education Program (NKDEP) does not endorse the use of the MDRD equation for patients that are not between the ages of 18 and 70, are , have extremes of body size, muscle mass, or nutritional status, or are non- or non-. According to the National Kidney Foundation, irrespective of diagnosis, the stage of the disease is based on the level of kidney function: Stage Description GFR(mL/min/1.73 m(2)) 1 Kidney damage with normal or decreased GFR 90 2 Kidney damage with mild decrease in GFR 60-89 3 Moderate decrease in GFR 30-59 4 Severe decrease in GFR 15-29 5 Kidney failure <15 (or dialysis) 3 AM 8.7-22.4 PM <10 4 Desirable: <150 Borderline High: 150-199 High: 200-499 Very High: >500 5 Desirable: <200 Borderline High: 200-239 High: >239 6 Low: <40 Desirable: 40-60 High: >60 7 Desirable: <100 Near Optimal: 100-129 Borderline High: 130-159 High: 160-189 Very High: >189 8 Test Result Flag Unit RefValue Calcium, Random, U 1 mg/dL ADDITIONAL INFORMATION This test has been modified from the verifier's instructions. Its performance characteristics were determined by [facility] in a manner consistent with CLIA requirements. This test has not been cleared or approved by the U.S. Food and Drug Administration. Creatinine Concentration 41 mg/dL Calcium/Creatinine Ratio 0.02 mg/mg <0.20 Test Performed by: [address] [address] 9 Because ethnic data is not always readily available, this report includes an eGFR for both -Americans and non- Americans. The National Kidney Disease Education Program (NKDEP) does not endorse the use of the MDRD equation for patients that are not between the ages of 18 and 70, are , have extremes of body size, muscle mass, or nutritional status, or are non- or non-. According to the National Kidney Foundation, irrespective of diagnosis, the stage of the disease is based on the level of kidney function: Stage Description GFR(mL/min/1.73 m(2)) 1 Kidney damage with normal or decreased GFR 90 2 Kidney damage with mild decrease in GFR 60-89 3 Moderate decrease in GFR 30-59 4 Severe decrease in GFR 15-29 5 Kidney failure <15 (or dialysis) 10 COLLECTED URINE 01/05 0740 THROUGH 01/06 0810 11 Because ethnic data is not always readily available, this report includes an eGFR for both -Americans and non- Americans. The National Kidney Disease Education Program (NKDEP) does not endorse the use of the MDRD equation for patients that are not between the ages of 18 and 70, are , have extremes of body size, muscle mass, or nutritional status, or are non- or non-. According to the National Kidney Foundation, irrespective of diagnosis, the stage of the disease is based on the level of kidney function: Stage Description GFR(mL/min/1.73 m(2)) 1 Kidney damage with normal or decreased GFR 90 2 Kidney damage with mild decrease in GFR 60-89 3 Moderate decrease in GFR 30-59 4 Severe decrease in GFR 15-29 5 Kidney failure <15 (or dialysis) 12 Test Result Flag Unit RefValue Calcium, Random, U 1 mg/dL ADDITIONAL INFORMATION This test has been modified from the verifier's instructions. Its performance characteristics were determined by [facility] in a manner consistent with CLIA requirements. This test has not been cleared or approved by the U.S. Food and Drug Administration. Creatinine Concentration 24 mg/dL Calcium/Creatinine Ratio 0.04 mg/mg <0.20 Test Performed by: [facility] [address] [place] [address] 13 ADDITIONAL INFORMATION This test was developed and its performance characteristics determined by [facility] in a manner consistent with CLIA requirements. This test has not been cleared or approved by the U.S. Food and Drug Administration. Test Performed by: [facility] [address] [place] [id number] 14 SEE RESULT BELOW Name: GENESIS SANCHEZ : [address]: Mason Sevilla MD Acct: [id number] Unit: [id number] AGE: 67 Location: [facility] Re10/20/17 SEX: F Status: REG REF SPEC: [id number] KATE: 10/20/17-[address]: Neal Sevilla MD REQ: [id number] RECD: 10/20/17 STATUS: COMP _ SOURCE: URINE SPDESC: ORDERED: Urine Culture COMMENTS: [id number] Urine Source: Random Procedure Result Reported Site Urine Culture Final 10/22/17928 ML Few Enterobacteriacae; possible contamination. * ML - MAIN LAB ([facility]) . END OF REPORT * ML=Testing performed at Main Lab DEPARTMENT OF PATHOLOGY, [address] [place] [address] John Coello M.D. Director [facility] # [id number] 15 Because ethnic data is not always readily available, this report includes an eGFR for both -Americans and non- Americans. The National Kidney Disease Education Program (NKDEP) does not endorse the use of the MDRD equation for patients that are not between the ages of 18 and 70, are , have extremes of body size, muscle mass, or nutritional status, or are non- or non-. According to the National Kidney Foundation, irrespective of diagnosis, the stage of the disease is based on the level of kidney function: Stage Description GFR(mL/min/1.73 m(2)) 1 Kidney damage with normal or decreased GFR 90 2 Kidney damage with mild decrease in GFR 60-89 3 Moderate decrease in GFR 30-59 4 Severe decrease in GFR 15-29 5 Kidney failure <15 (or dialysis) 16 AM 8.7-22.4 PM <10 17 Normal Range 180 to 914 Indeterminate Range 145 to 180 Deficient Range <145 18 Test Result Flag Unit RefValue Calcium, Random, U 1 mg/dL ADDITIONAL INFORMATION This test has been modified from the verifier's instructions. Its performance characteristics were determined by [facility] [place] in a manner consistent with CLIA requirements. This test has not been cleared or approved by the U[place]. Food and Drug Administration. Creatinine Concentration 23 mg/dL Calcium/Creatinine Ratio 0.04 mg/mg <0.20 Test Performed by: [address] [id number] ADDITIONAL INFORMATION This test was developed and its performance characteristics determined by [facility] [place] in a manner consistent with CLIA requirements. This test has not been cleared or approved by the [place].S. Food and Drug Administration. Test Performed by: [facility] - [address] [id number] ADDITIONAL INFORMATION This test was developed and its performance characteristics determined by [facility] in a manner consistent with CLIA requirements. This test has not been cleared or approved by the U.S. Food and Drug Administration. Test Performed by: [facility] - [address] [address] 21 REFERENCE VALUE <4.0 (Negative) Test Performed by: [address] [address] 22 Negative serology. Celiac disease unlikely. However, approximately 10% of patients with celiac disease are seronegative. Also, patients who are already adhering to a gluten-free diet may be seronegative. If celiac disease is highly clinically suspected, consider HLA-DQ typing. Test Performed by: [facility] - [address] [address] 23 nmol/mmol=nmol Bone Collagen Equivalents/mmol Creatinine REFERENCE VALUE Premenopausal: 17-94 nmol/mmol Postmenopausal: 26-124 nmol/mmol Test Performed by: [facility] - [address] [address] 24 ADDITIONAL INFORMATION This test was developed and its performance characteristics determined by [facility] in a manner consistent with CLIA requirements. This test has not been cleared or approved by the U.S. Food and Drug Administration. Test Performed by: [facility] - [address] [address] 25 ADDITIONAL INFORMATION This test was developed and its performance characteristics determined by [facility] in a manner consistent with CLIA requirements. This test has not been cleared or approved by the U.S. Food and Drug Administration. Test Performed by: [facility] - [address] [address] 26 ADDITIONAL INFORMATION This test was developed and its performance characteristics determined by [facility] in a manner consistent with CLIA requirements. This test has not been cleared or approved by the U.S. Food and Drug Administration. Test Performed by: [facility] [address] [place] [address] 27 ADDITIONAL INFORMATION This test was developed and its performance characteristics determined by [facility] in a manner consistent with CLIA requirements. This test has not been cleared or approved by the U.S. Food and Drug Administration. Test Performed by: [facility] [address] [place] [address] 28 Because ethnic data is not always readily available, this report includes an eGFR for both -Americans and non- Americans. The National Kidney Disease Education Program (NKDEP) does not endorse the use of the MDRD equation for patients that are not between the ages of 18 and 70, are , have extremes of body size, muscle mass, or nutritional status, or are non- or non-. According to the National Kidney Foundation, irrespective of diagnosis, the stage of the disease is based on the level of kidney function: Stage Description GFR(mL/min/1.73 m(2)) 1 Kidney damage with normal or decreased GFR 90 2 Kidney damage with mild decrease in GFR 60-89 3 Moderate decrease in GFR 30-59 4 Severe decrease in GFR 15-29 5 Kidney failure <15 (or dialysis) 29 Because ethnic data is not always readily available, this report includes an eGFR for both -Americans and non- Americans. The National Kidney Disease Education Program (NKDEP) does not endorse the use of the MDRD equation for patients that are not between the ages of 18 and 70, are , have extremes of body size, muscle mass, or nutritional status, or are non- or non-. According to the National Kidney Foundation, irrespective of diagnosis, the stage of the disease is based on the level of kidney function: Stage Description GFR(mL/min/1.73 m(2)) 1 Kidney damage with normal or decreased GFR 90 2 Kidney damage with mild decrease in GFR 60-89 3 Moderate decrease in GFR 30-59 4 Severe decrease in GFR 15-29 5 Kidney failure <15 (or dialysis) 30 Desirable <150 Borderline high 150-199 High 200-499 Very High >500 31 Desirable <200 Borderline high 200-239 High >239 32 Low <40 Desirable: 40-60 High: >60 33 Desirable: <100 mg/dL Near Optimal: 100-129 mg/dL Borderline High: 130-159 mg/dL High: 160-189 mg/dL Very High: >189 mg/dL 34 Draw prior to AM dose of medication Copy Result to: BJORN CONNOR ([id number]) 35 SEE RESULT BELOW Name: GENESIS SANCHEZ : [address]: Bjorn Connor MD Acct: [id number] Unit: [id number] AGE: 66 Location: [facility] Re06/26/16 SEX: F Status: REG REF SPEC: [id number] KATE: 06/26/16 [facility] DR: Bjorn Connor MD REQ: [id number] RECD: 06/26/16 STATUS: COMP _ SOURCE: STOOL SPDESC: ORDERED: Stool Culture, O P: Giar/Crypt COMMENTS: STOOL COLLECTED @6397 ON 06/25/2016 Procedure Result Reported Site Stool Culture Final 06/28/16- 0943 ML Result No enteric pathogens isolated Testing for Salmonella, Shigella, Aeromonas, Plesiomonas, Yersinia and Campylobacter are included in a Stool Culture. Vibrio spp not routinely tested for in a stool culture. If testing is desired, please request specifically when placing test order. Sensitivities not routinely performed on stool isolates, as antibiotics may prolong the carriage rate of bacteria. Please contact the microbiology lab if sensitivities are required. Stool Specimen Description Final 06/26/16- 1703 ML Stool Color Brown Stool Form Nonformed Stool Consistency Liquid Shiga Toxin 1 2 Final 06/27/16- 1018 ML Organism 1 Negative Shiga Toxin 1 2 CONTINUED ON NEXT PAGE * ML=Testing performed at Main Lab DEPARTMENT OF PATHOLOGY, [address] [place] [address] John Coello M.D. Director [facility] # [id number] Patient: GENESIS SANCHEZ [id number] (Continued) Specimen: [id number] Collected: 06/26/16 Received: 06/26/16 (Continued) Procedure Result Reported Site Shiga Toxin 1 2 Final (continued) 06/27/16- 1018 Immunochromatographic Assay O P: Giardia/Cryptospor Screen Final 06/27/16- 1008 ML Organism 1 Neg Cryptosporidium/Giardia Giardia and cryptosporidium antigen testing performed by enzyme immunoassay. If patient is immunocompromised or has traveled to or is from a developing country, a full ova and parasite exam with microscopic (OPMIC) is recommended. All samples will be held one month in case full ova and parasite testing is requested. Contact the Microbiology Department at [phone]. TEST LIMITATIONS: As with all diagnostic procedures, the results obtained should be used in conjunction with other clinical information available the physician, including confirmation by another method. Negative results can occur in samples containing antigen below lower limits of detection of the assay. One negative specimen does not rule out the possibility of a parasitic infection. To improve detection it is recommended that three specimens be collected on separate days over a period of not more than seven days. The use of colonic washes, aspirates or other diluted sample types has not been established and could affect the performance of the assay. Stool samples contaminated with an oily or particulate base (eg. Barium, mineral oil etc.) could interfere with the test and are not recommended. * ML - MAIN LAB ([facility]) . END OF REPORT * ML=Testing performed at Main Lab DEPARTMENT OF PATHOLOGY, [address] [place] [address] John Coello M.D. Director [facility] # [id number] 36 Because ethnic data is not always readily available, this report includes an eGFR for both -Americans and non- Americans. The National Kidney Disease Education Program (NKDEP) does not endorse the use of the MDRD equation for patients that are not between the ages of 18 and 70, are , have extremes of body size, muscle mass, or nutritional status, or are non- or non-. According to the National Kidney Foundation, irrespective of diagnosis, the stage of the disease is based on the level of kidney function: Stage Description GFR(mL/min/1.73 m(2)) 1 Kidney damage with normal or decreased GFR 90 2 Kidney damage with mild decrease in GFR 60-89 3 Moderate decrease in GFR 30-59 4 Severe decrease in GFR 15-29 5 Kidney failure <15 (or dialysis) 37 draw one week after increase in dose Draw in am prior to first dose. Copy Result to: BJORN CONNOR ([id number]) 38 Normal Range 180 to 914 Indeterminate Range 145 to 180 Deficient Range <145 39 Because ethnic data is not always readily available, this report includes an eGFR for both -Americans and non- Americans. The National Kidney Disease Education Program (NKDEP) does not endorse the use of the MDRD equation for patients that are not between the ages of 18 and 70, are , have extremes of body size, muscle mass, or nutritional status, or are non- or non-. According to the National Kidney Foundation, irrespective of diagnosis, the stage of the disease is based on the level of kidney function: Stage Description GFR(mL/min/1.73 m(2)) 1 Kidney damage with normal or decreased GFR 90 2 Kidney damage with mild decrease in GFR 60-89 3 Moderate decrease in GFR 30-59 4 Severe decrease in GFR 15-29 5 Kidney failure <15 (or dialysis) 40 Test Result Flag Unit RefValue Osmolality, S 289 mOsm/kg 275 - 295 Test Performed by: [place] [address] Bunk House Worker: Alvin Dunn II, M.D., Ph.D. 41 Because ethnic data is not always readily available, this report includes an eGFR for both -Americans and non- Americans. The National Kidney Disease Education Program (NKDEP) does not endorse the use of the MDRD equation for patients that are not between the ages of 18 and 70, are , have extremes of body size, muscle mass, or nutritional status, or are non- or non-. According to the National Kidney Foundation, irrespective of diagnosis, the stage of the disease is based on the level of kidney function: Stage Description GFR(mL/min/1.73 m(2)) 1 Kidney damage with normal or decreased GFR 90 2 Kidney damage with mild decrease in GFR 60-89 3 Moderate decrease in GFR 30-59 4 Severe decrease in GFR 15-29 5 Kidney failure <15 (or dialysis) 42 Test Performed by: [address] [address] Bunk House Worker: Alvin G. Morice, II, M.D., Ph.D. 43 Copy Result to: BJORN CONNOR ([id number]) 44 Copy Result to: BJORN CONNOR ([id number]) 45 Because ethnic data is not always readily available, this report includes an eGFR for both -Americans and non- Americans. The National Kidney Disease Education Program (NKDEP) does not endorse the use of the MDRD equation for patients that are not between the ages of 18 and 70, are , have extremes of body size, muscle mass, or nutritional status, or are non- or non-. According to the National Kidney Foundation, irrespective of diagnosis, the stage of the disease is based on the level of kidney function: Stage Description GFR(mL/min/1.73 m(2)) 1 Kidney damage with normal or decreased GFR 90 2 Kidney damage with mild decrease in GFR 60-89 3 Moderate decrease in GFR 30-59 4 Severe decrease in GFR 15-29 5 Kidney failure <15 (or dialysis) 46 Test Performed by: [place] [address] Bunk House Worker: Alvin Dunn II, M.D., Ph.D. 47 Because ethnic data is not always readily available, this report includes an eGFR for both -Americans and non- Americans. The National Kidney Disease Education Program (NKDEP) does not endorse the use of the MDRD equation for patients that are not between the ages of 18 and 70, are , have extremes of body size, muscle mass, or nutritional status, or are non- or non-. According to the National Kidney Foundation, irrespective of diagnosis, the stage of the disease is based on the level of kidney function: Stage Description GFR(mL/min/1.73 m(2)) 1 Kidney damage with normal or decreased GFR 90 2 Kidney damage with mild decrease in GFR 60-89 3 Moderate decrease in GFR 30-59 4 Severe decrease in GFR 15-29 5 Kidney failure <15 (or dialysis) 48 Normal Range 180 to 914 Indeterminate Range 145 to 180 Deficient Range <145 49 Because ethnic data is not always readily available, this report includes an eGFR for both -Americans and non- Americans. The National Kidney Disease Education Program (NKDEP) does not endorse the use of the MDRD equation for patients that are not between the ages of 18 and 70, are , have extremes of body size, muscle mass, or nutritional status, or are non- or non-. According to the National Kidney Foundation, irrespective of diagnosis, the stage of the disease is based on the level of kidney function: Stage Description GFR(mL/min/1.73 m(2)) 1 Kidney damage with normal or decreased GFR 90 2 Kidney damage with mild decrease in GFR 60-89 3 Moderate decrease in GFR 30-59 4 Severe decrease in GFR 15-29 5 Kidney failure <15 (or dialysis) 50 Desirable <150 Borderline high 150-199 High 200-499 Very High >500 51 Desirable <200 Borderline high 200-239 High >239 52 Low <40 Desirable: 40-60 High: >60 53 Desirable: <100 mg/dL Near Optimal: 100-129 mg/dL Borderline High: 130-159 mg/dL High: 160-189 mg/dL Very High: >189 mg/dL 54 Test Performed by: [place] [address] Bunk House Worker: Alvin Dunn II, M.D., Ph.D. 55 CANNOT ADD ON AMMONIA, NEED PINK ON ICE, YANELI DIAZTERRY @ 2050 56 SEE RESULT BELOW Name: GENESIS SANCHEZ : [address]: Lolis Pedersen DO Acct: [id number] Unit: [id number] AGE: 65 Location: [place] [address] Re11/20/15 Dis: 11/21/15 SEX: F Status: DIS Maia SPEC: [id number] KATE: 11/20/[address]: Alvin López MD REQ: [id number] RECD: 11/20/15 STATUS: TRAM PICKARD DR: Bjorn Connor MD _ SOURCE: BLOOD,[facility]: ORDERED: Blood Cult Procedure Result Reported Site Aerobic Culture Bottle Final 11/25/152053 ML No Growth Day 5 Anaerobic Culture Bottle Final 11/25/152053 ML No Growth Day 5 * ML - MAIN LAB ([facility]) . END OF REPORT * ML=Testing performed at Main Lab DEPARTMENT OF PATHOLOGY, [address] [place] [address] John Coello M.D. Director [facility] # [id number] 57 Acute inflammation: >10.00 58 Reference Range and Interpretation: TnI (ng/mL) Interpretation Less Than 0.03 ng/mL Not supportive of diagnosis of IN 0.03 - 0.50 ng/mL Indeterminate: suggest serial studies if clinically indicated. Greater than 0.5 ng/mL Consistent with diagnosis of IN 59 Desirable <150 Borderline high 150-199 High 200-499 Very High >500 60 Desirable <200 Borderline high 200-239 High >239 61 Low <40 Desirable: 40-60 High: >60 62 Desirable: <100 mg/dL Near Optimal: 100-129 mg/dL Borderline High: 130-159 mg/dL High: 160-189 mg/dL Very High: >189 mg/dL 63 Because ethnic data is not always readily available, this report includes an eGFR for both -Americans and non- Americans. The National Kidney Disease Education Program (NKDEP) does not endorse the use of the MDRD equation for patients that are not between the ages of 18 and 70, are , have extremes of body size, muscle mass, or nutritional status, or are non- or non-. According to the National Kidney Foundation, irrespective of diagnosis, the stage of the disease is based on the level of kidney function: Stage Description GFR(mL/min/1.73 m(2)) 1 Kidney damage with normal or decreased GFR 90 2 Kidney damage with mild decrease in GFR 60-89 3 Moderate decrease in GFR 30-59 4 Severe decrease in GFR 15-29 5 Kidney failure <15 (or dialysis) 64 [facility] Severe Sepsis and Septic Shock Management Bundle Measure requires all lactic acids initially measuring >2.0mmol/L be repeated. Procedures Date Code Description Status 05/12/2018 [id number] Mammogram Completed 03/05/2018 52208 EKG Tracing & Interpretation Completed 01/06/2018 [id number] Bone Mineral Density Test Completed 07/23/2017 29506 Sleep Study Unattended,HRT Rate,Oxygen Sat,Resp Completed Effort/Airflow 05/18/2017 49107 Holter Monitor Review (24 hr)dr review & interp only Completed 05/14/2017 69680 ECG Monitor/Recording W/Visual Superimposition Completed Scanning 06/19/2016 36609 EKG Tracing & Interpretation Completed 02/26/2016 60279 EEG Recording Awake & Drowsy Completed 02/26/2016 57729 Inject/Drain Joint/Bursa Major W/O US Completed 02/07/2016 03100 Plethysmography Determination Lung Volumes & Per Completed Airway Resist 02/07/2016 64254 Pulmonary Function><Bronchodil Completed 01/24/2016 [id number] Mammogram Completed 11/21/2015 77473 EEG Recording Awake & Asleep Completed 06/13/2015 81578 EKG Tracing & Interpretation Completed 12/15/2012 32388 Holter Monitoring 24 HR New Completed 12/01/2012 58390 ECHO Transthoracic, Real-Time 2D With Doppler And Completed Color Flow 11/15/2012 14561 Holter Monitoring 24 HR New Completed 11/04/2012 78570 Stress Test Completed 10/25/2012 05521 EKG Tracing & Interpretation Completed 09/07/2012 [id number] Colonoscopy Completed Encounters Type Date Location Provider Dx Diagnosis Office Visit 05/11/2018 [facility] [place] H10.9 Unspecified 1:20p Kristen Connor M.D. conjunctivitis Rd Office Visit 04/29/2018 [place] [facility] Treva Fajardo, G40.209 Local- rel symptc epi 1:30p Services [facility] [place] [place] w cmplx prt seiz,not ntrct,w/o stat epi Office Visit 04/14/2018 [place] [place] I10 Essential (primary) 8:40a Kristen Connor M.D. hypertension [place] F33.0 Major depressive disorder, recurrent, mild J45.909 Unspecified asthma, uncomplicated Z12.31 Encntr screen mammogram for malignant neoplasm of breast E66.9 Obesity, unspecified Z23 Encounter for immunization Office Visit 03/02/2018 [facility] [place] Z01.818 Encounter for other 9:00a Kristen Connor M.D. preprocedural [address] examination M65.30 Trigger finger, unspecified finger I10 Essential (primary) hypertension J45.909 Unspecified asthma, uncomplicated Office Visit 01/06/2018 10:45a [place] Quan Fajardo, G40.209 Local-rel [facility] [place] [place] symptc epi w cmplx prt seiz,not ntrct,w/o stat epi S06.0x0D Concussion without loss of consciousness, subs encntr R29.6 Repeated falls Office Visit 12/04/2017 10:00a [facility] Bjorn Connor, I10 Essential (primary) Medicine - MJohnie hypertension [address] J45.909 Unspecified asthma, uncomplicated F33.0 Major depressive disorder, recurrent, mild E66.01 Morbid (severe) obesity due to excess calories D64.9 Anemia, unspecified M51.16 Intervertebral disc disorders w radiculopathy, lumbar region M54.2 Cervicalgia Office Visit 10/20/2017 3:40p [facility] Neal Sevilla, R30.0 Dysuria Medicine - [place],FACP K51.918 Ulcerative colitis, unspecified with other complication Office Visit 07/09/2017 2:45p [facility] Mavis Zamorano, R06.83 Snoring [facility] G47.10 Hypersomnia, unspecified E66.01 Morbid (severe) obesity due to excess calories Z68.35 Body mass index (BMI) 35.0-35.9, adult Office Visit 07/01/2017 8:20a [facility] Bjorn Connor, I10 Essential Medicine - MJohnie (primary) [place] hypertension J45.909 Unspecified asthma, uncomplicated F33.0 Major depressive disorder, recurrent, mild H01.009 Unspecified blepharitis unspecified eye, unspecified eyelid M50.10 Cervical disc disorder w radiculopathy, unsp cervical region Office Visit 05/01/2017 9:30a [facility] Treva Fajardo, G40.209 Local-[facility] Of [place] [place] symptc epi w cmplx prt seiz,not ntrct,w/o stat epi R51 Headache G31.84 Mild cognitive impairment, so stated G47.30 Sleep apnea, unspecified Office Visit 03/25/2017 9:40a [facility] Bjorn Connor, I10 Essential Medicine - MJohnie (primary) [place] hypertension F33.0 Major depressive disorder, recurrent, mild E66.01 Morbid (severe) obesity due to excess calories J45.909 Unspecified asthma, uncomplicated E87.1 Hypo-osmolality and hyponatremia Office Visit 02/25/2017 1:30p [place] [facility] Treva Fajardo, G40.209 Local-rel [facility] Vahid symptc epi w cmplx prt seiz,not ntrct,w/o stat epi R51 Headache M54.2 Cervicalgia G31.84 Mild cognitive impairment, so stated Office Visit 02/06/2017 8:30a [place] [facility] Treva Fajardo, G31.84 Mild cognitive [facility] Vahid impairment, so stated G40.909 Epilepsy, unsp, not intractable, without status epilepticus R51 Headache M54.2 Cervicalgia R29.2 Abnormal reflex Office Visit 12/24/2016 9:20a [facility] Bjorn Connor, I10 Essential Medicine - M.D. (primary) [place] hypertension F33.0 Major depressive disorder, recurrent, mild E66.01 Morbid (severe) obesity due to excess calories J45.909 Unspecified asthma, uncomplicated Z11.59 Encounter for screening for other viral diseases Office Visit 10/22/2016 9:40a [facility] Imbler Geeta, F33.0 Major depressive Medicine - M.D. disorder, [place] recurrent, mild H81.393 Other peripheral vertigo, bilateral B37.9 Candidiasis, unspecified Z23 Encounter for immunization Office Visit 10/10/2016 9:00a [facility] Mima Hooper, M25.551 Pain in right Of C.M.A. M.D. hip M16.11 Unilateral primary osteoarthritis, right hip M54.5 Low back pain M81.8 Other osteoporosis without current pathological fracture E66.01 Morbid (severe) obesity due to excess calories Office Visit 10/08/2016 8:20a [facility] Imbler Pachikara, F33.0 Major depressive Medicine - M.D. disorder, [place] recurrent, mild H81.393 Other peripheral vertigo, bilateral B37.3 Candidiasis of vulva and vagina M25.551 Pain in right hip Office Visit 09/17/2016 8:20a [facility] Imbler Pachikara, F33.0 Major depressive Medicine - M.D. disorder, [place] recurrent, mild I10 Essential (primary) hypertension H81.393 Other peripheral vertigo, bilateral J45.909 Unspecified asthma, uncomplicated Office Visit 08/27/2016 Jake Fajardo, G31.84 Mild cognitive 2:30p Neurologic M.D. impairment, so [facility] stated Office Visit 08/20/2016 Jake Fajardo, G40.909 Epilepsy, unsp, not 9:30a Neurologic M.DMarkie intractable, [facility] without status epilepticus Office Visit 07/02/2016 [facility] Bjorn K51.90 Ulcerative colitis, 9:00a Medicine - [place], unspecified, [place] Paulette.DMarkie without complications Office Visit 06/25/2016 [facility] Imbler I10 Essential (primary) 9:00a Medicine - [place], hypertension John [place] J45.998 Other asthma F33.0 Major depressive disorder, recurrent, mild K51.90 Ulcerative colitis, unspecified, without complications H60.311 Diffuse otitis externa, right ear Office Visit 06/19/2016 9:00a [facility] Benny España, Z01.818 Encounter for other Medicine - [employer] preprocedural [place] examination M25.512 Pain in left shoulder G40.909 Epilepsy, unsp, not intractable, without status epilepticus I12.9 Hypertensive chronic kidney disease w stg 1-4/unsp chr kdny J45.998 Other asthma N18.2 Chronic kidney disease, stage 2 (mild) D64.9 Anemia, unspecified D51.8 Other vitamin B12 deficiency anemias M75.102 Unsp rotatr-cuff tear/ruptr of left shoulder, not trauma Office Visit 06/10/2016 2:30p Orthopedic Jose Alfredo Mason, M75.102 Unsp rotatr-cuff Services Of MD tear/ruptr of C.M.A. left shoulder, not trauma M75.02 Adhesive capsulitis of left shoulder Z96.651 Presence of right artificial knee joint Office Visit 05/23/2016 Jake Toro G40.909 Epilepsy, unsp, 11:45a Neurologic Vahid Andrew not intractable, [facility] without status epilepticus Office Visit 05/09/2016 [facility] Jose Alfredo Mason, M25.512 Pain in left 9:30a Services Of shoulder C.M.A. M75.102 Unsp rotatr-cuff tear/ruptr of left shoulder, not trauma M75.02 Adhesive capsulitis of left shoulder Office Visit 03/19/2016 2:00p [facility] Emely Connor, G40.89 Other seizures Kristen Mckeon M.D. [address] F33.0 Major depressive disorder, recurrent, mild Office Visit 03/12/2016 9:40a [facility] Emely Connor, F33.0 Major depressive Medicine Mike [place] disorder, [address] recurrent, mild J45.909 Unspecified asthma, uncomplicated E66.01 Morbid (severe) obesity due to excess calories Office Visit 02/26/2016 2:30p Orthopedic Jose Alfredo Mason, M75.102 Unsp rotatr-cuff Services Of tear/ruptr of C.M.A. left shoulder, not trauma M25.512 Pain in left shoulder M75.02 Adhesive capsulitis of left shoulder M75.112 Incomplete rotatr-cuff tear/ruptr of l shoulder, not trauma Office Visit 02/15/2016 [facility] Emely [place] M75.102 Unsp rotatr-cuff 8:40a Kristen Connor M.D. 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 (primary) [place] hypertension D64.9 Anemia, unspecified F33.0 Major depressive disorder, recurrent, mild Z12.39 Encounter for oth screening for malignant neoplasm of breast H90.3 Sensorineural hearing loss, bilateral M25.512 Pain in left shoulder Office Visit 11/23/2015 8:40a [facility] Internal Bjorn Pachikara, I10 [facility] - M.DMarkie (primary) [place] hypertension D64.9 Anemia, unspecified G40.89 Other seizures J45.909 Unspecified asthma, uncomplicated D51.8 Other vitamin B12 deficiency anemias K51.90 Ulcerative colitis, unspecified, without complications M81.8 Other osteoporosis without current pathological fracture F33.0 Major depressive disorder, recurrent, mild M15.0 Primary generalized (osteo)arthritis G47.30 Sleep apnea, unspecified Office 11/21/2015 [facility] Ab Toro G40.909 Epilepsy, unsp, Visit 4:31p Clinic Vahid Andrew not intractable, without status epilepticus Office 11/21/2015 [facility] Lolis R56.9 Unspecified Visit 9:24a [facility] [place], DO convulsions K51.80 Other ulcerative colitis without complications M19.90 Unspecified osteoarthritis, unspecified site I10 Essential (primary) hypertension Office 11/20/2015 [facility] Treva G40.909 Epilepsy, unsp, Visit 4:29p Clinic Vahid Fajardo not intractable, without status epilepticus Office 11/20/2015 [facility] Terence Lr, R56.9 Unspecified Visit 9:23a [facility] Vahid convulsions K51.80 Other ulcerative colitis without complications M19.90 Unspecified osteoarthritis, unspecified site I10 Essential (primary) hypertension Office Visit 06/13/2015 [facility] Kelsie Lee, Z01.810 Encounter for 1:15p Cardiology Ana [place] preprocedural [facility] cardiovascular examination I10 Essential (primary) hypertension E66.09 Other obesity due to excess calories I49.3 Ventricular premature depolarization K46.9 Unspecified abdominal hernia without obstruction or gangrene Office Visit 12/21/2012 2:15p [facility] Cuba Lee M.D. 782.3 Edema Mold Blower 401.9 Hypertension Unspec 278.00 Obesity Unspec Office Visit 11/24/2012 [facility] Kelsie Lee, 427.0 PSVT Paroxysmal 8:45a [facility] [place] Supraventricular [facility] Tachycardia 427.69 Premature Beats Other Office Visit 10/25/2012 10:45a [facility] Kelsie Lee, 780.97 Altered [facility] [place] Status 278.00 Obesity Unspec Plan of Treatment Future Appointment(s):10/29/2018 8:30 am - Treva Fajardo M.D. at [facility]
--- NOTE | 2018-07-28 09:55 | ED ---
HPI Febrile Illness - HPI Summary HPI Summary: The pt is a 68 y/o female presenting to [facility] c/o ROGERS since 5 days ago. She notes fever reaching 102.9 F, chills, nausea, and R neck pain but denies CP, cough, vomiting, diarrhea, sore throat, rhinorrhea, back pain, dysuria and constipation. The neck pain radiates to the L side when she rotates her head. The ROGERS is rated 10/10 in severity. She was seen by her PCP today and sent to the ED to rule out meningitis. The pt takes ASA but not blood thinners. Home Medications Medication Instructions Recorded Confirmed Type Cholecalciferol [Vitamin D 400] 2,000 unit PO DAILY 05/03/13 06/18/16 History Cyanocobalamin [Vitamin B-12] 1,000 mcg IM MONTHLY 05/03/13 06/18/16 History DULoxetine CAP* [Cymbalta CAP*] 120 mg PO DAILY 05/03/13 06/18/16 History Multiple Vitamins W/ Minerals 1 cap PO DAILY 05/03/13 06/18/16 History [Multi Complete] Amlodipine Besylate [Norvasc 5 mg 1 tab PO DAILY 09/01/15 06/18/16 History tab] Aspirin [Aspirin Adult Low Strengt] 81 mg PO DAILY 09/01/15 06/18/16 History Furosemide TAB* [Lasix TAB*] 20 mg PO DAILY PRN 09/01/15 06/18/16 History Acetaminop/Codeine 30 MG TAB* 1 tab PO BID PRN MDD 2 11/20/15 06/18/16 History [Tylenol/Codeine 30 MG TAB*] Mesalamine (NF) [Lialda (NF)] 2.4 gm PO BID 11/20/15 06/18/16 History Calcium Carbonate TAB* 1,250 mg PO BID #60 tab 11/21/15 06/18/16 Rx FLUoxetine CAP* [Prozac CAP*] 20 mg PO DAILY 06/18/16 06/18/16 History Magnesium 250 mg PO DAILY 06/18/16 06/18/16 History Phenytoin Sodium Extended 4 tab PO BEDTIME 06/18/16 06/18/16 History Zinc Gluconate [Zinc] 50 mg PO DAILY 06/18/16 06/18/16 History - History of Current Complaint Chief Complaint: EDFever Time Seen by Provider: 07/28/18 09:36 Hx Obtained From: Patient Onset/Duration: Started Days Ago - 5 days, Still Present, Worse Since - Today Timing: Constant Temperature: 102.9 F Initial Severity: Severe Current Severity: Severe Pain Intensity: 10 Pain Scale Used: 0-10 Numeric Aggravating Factors: Other: Associated Signs and Symptoms: Negative - CP, cough, vomiting, diarrhea, sore throat, rhinorrhea, back pain, dysuria and constipation, Chills, Headache, Nausea - Allergy/Home Medications Allergies/Adverse Reactions: Allergies Allergy/AdvReac Type Severity Reaction Status Date / Time Adhesive Tape Allergy Intermediate Blisters Verified 01/20/18 11:50 Sulfa (Sulfonamide Allergy Rash Verified 07/28/18 09:27 Antibiotics) codeine AdvReac GI Upset Verified 07/28/18 13:32 HAIR/NAIL SUPPLEMENT Allergy Rash And Uncoded 01/20/18 11:50 Itching Home Medications: Home Medications Albuterol inh POWDER (NF) [Proair Respiclick] 2 puff INH Q4HR PRN 07/28/18 [ History Confirmed 07/28/18] Ascorbic Acid TAB* [Vitamin C TAB*] 500 mg PO DAILY 07/28/18 [History Confirmed 07/28/18] Aspirin EC TAB* [Ecotrin EC Low Dose 81 MG*] 81 mg PO DAILY 07/28/18 [History Confirmed 07/28/18] Budesonide/Formote 160/4.5(NF) [Symbicort 160/4.5 (NF)] 2 puff INH BID 07/28/18 [History Confirmed 07/28/18] Calcium Citrate/Magnesium/D3 [Calcium Citrate/Mag... 250-125-200 mg-mg-Unit] 2 waf PO TID 07/28/18 [History Confirmed 07/28/18] Cholecalciferol (Vitamin D3) [Vitamin D3] 5,000 unit PO DAILY 07/28/18 [History Confirmed 07/28/18] Cyanocobalamin INJ * [Vitamin B12 INJ *] 1,000 mcg IM Q30D 07/28/18 [History Confirmed 07/28/18] DULoxetine DR CAP* [Cymbalta CAP*] 60 mg PO DAILY 07/28/18 [History Confirmed ] Erythromycin OPTH OINT* [Erythromycin 0.5% OPTH OINT*] 1 applic BOTH EYES TID [History Confirmed 07/28/18] FLUoxetine CAP* [PROzac CAP*] 10 mg PO DAILY 07/28/18 [History Confirmed ] HYDROcodone/ACETAMIN 5-325 MG* [[place] 5-325 TAB*] 1 tab PO Q8H PRN 07/28/18 [ History Confirmed 07/28/18] Iron Ps Complex/B12/Folic Acid [Poly-Iron 150 Forte] 1 cap PO DAILY 07/28/18 [ History Confirmed 07/28/18] Magnesium Oxide [Magnesium] 500 mg PO DAILY 07/28/18 [History Confirmed 07/28/18 ] Meclizine TAB* [Antivert 12.5 TAB*] 25 mg PO Q8HR PRN 07/28/18 [History Confirmed 07/28/18] Mesalamine (NF) [Lialda (NF)] 2.4 gm PO DAILY 07/28/18 [History Confirmed ] Metoprolol Succinate XL TAB* [Toprol XL TAB*] 50 mg PO DAILY 07/28/18 [History Confirmed 07/28/18] Phenytoin CAP(*) [Dilantin CAP(*)] 400 mg PO DAILY 07/28/18 [History Confirmed 07/28/18] Potassium Chlor TAB* [Klor Con ER TAB*] 20 meq PO DAILY 07/28/18 [History Confirmed 07/28/18] Zinc Gluconate [Zinc] 50 mg PO DAILY 07/28/18 [History Confirmed 07/28/18] amLODIPine TAB* [Norvasc 5 mg TAB*] 5 mg PO DAILY 07/28/18 [History Confirmed ] PMH/Surg Hx/FS Hx/Imm Hx Previously Healthy: No Endocrine/Hematology History: Reports: Hx Anemia Denies: Hx Diabetes, Hx Thyroid Disease Cardiovascular History: Reports: Hx Hypertension Denies: Hx Pacemaker/ICD Respiratory History: Reports: Hx Asthma, Hx Chronic Bronchitis, Hx Chronic Obstructive Pulmonary Disease (COPD), Hx Pneumonia, Hx Sleep Apnea GI History: Reports: Hx Ulcer History: Reports: Hx Acute Renal Failure, Hx Renal Disease - 3RD STAGE Musculoskeletal History: Reports: Hx Arthritis, Hx Osteoporosis Sensory History: Reports: Hx Contacts or Glasses Denies: Hx Hearing Aid Opthamlomology History: Reports: Hx Contacts or Glasses Neurological History: Denies: Hx Dementia, Hx Migraine, Hx Seizures, Hx Transient Ischemic Attacks (TIA) Psychiatric History: Denies: Hx Panic Disorder - Cancer History Cancer Type, Location and Year: None reported Hx Chemotherapy: No Hx Radiation Therapy: No - Surgical History Surgery Procedure, Year, and Place: BILATERAL knee replacement, hysterectomy, 2 c-sections, bilat carpal tunnel x2, appy, gastric bypass, multiple hernia repair 06/2015. VARICOSE VEIN SURG Infectious Disease History: No Infectious Disease History: Denies: Traveled Outside the [place] in Last 30 Days - Family History Known Family History: Negative: Cardiac Disease, Hypertension, Diabetes - Social History Occupation: Retired Lives: With Family Alcohol Use: Rare Substance Use Type: Reports: None Smoking Status (MU): Never Smoked Tobacco Review of Systems Positive: Fever, Chills Negative: Sore Throat Negative: Chest Pain Respiratory: Negative - Rhinnorhea Negative: Cough Gastrointestinal: Negative - Constipation Positive: Nausea. Negative: Vomiting, Diarrhea Negative: dysuria Musculoskeletal: Negative - Back pain Positive: Headache All Other Systems Reviewed And Are Negative: Yes Physical Exam - Summary Physical Exam Summary: VITAL SIGNS: Reviewed. GENERAL: Patient is a well-developed and nourished female who is lying comfortable in the stretcher.Patient is not in any acute respiratory distress. HEAD AND FACE: No signs of trauma. No ecchymosis, hematomas or skull depressions. No sinus tenderness. EYES: PERRLA, EOMI x 2, No injected conjunctiva, no nystagmus. No photophobia. EARS: Hearing grossly intact. Ear canals and tympanic membranes are within normal limits. MOUTH: Oropharynx within normal limits. NECK: Supple, trachea is midline, no adenopathy, no JVD, no carotid bruit, no c- spine tenderness, neck with full ROM. Patient notes neck apin worse on the R side. No meningeal signs, no Kernig's or brudzinskis signs. CHEST: Symmetric, no tenderness at palpation LUNGS: Clear to auscultation bilaterally. No wheezing or crackles. CVS: Regular rate and rhythm, S1 and S2 present, no murmurs or gallops appreciated. ABDOMEN: Soft, non-tender. No signs of distention. No rebound no guarding, and no masses palpated. Bowel sounds are normal. EXTREMITIES: FROM in all major joints, no edema, no cyanosis or clubbing. NEURO: Alert and oriented x 3. No acute neurological deficits. Speech is normal and follows commands. SKIN: Dry and warm GCS: 15 Triage Information Reviewed: Yes Vital Signs On Initial Exam: Initial Vitals Temp Pulse Resp BP Pulse Ox 98.9 F 84 20 136/87 95 07/28/18 09:24 07/28/18 09:24 07/28/18 09:24 07/28/18 09:24 07/28/18 09:24 Vital Signs Reviewed: Yes Diagnostics - Vital Signs Vital Signs Temp Pulse Resp BP Pulse Ox 07/28/18 09:52 101.1 F 07/28/18 09:37 99.1 F 07/28/18 09:24 98.9 F 84 20 136/87 95 - Laboratory Result Diagrams: 07/29/18 07:00 07/28/18 10:34 Lab Statement: Any lab studies that have been ordered have been reviewed, and results considered in the medical decision making process. - Radiology CXR Radiology Interpretation Completed By: Radiologist - IMPRESSION: NO ACTIVE CARDIOPULMONARY DISEASE. The ED physician reviewed this radiology report. - CT Brain CT CT Interpretation Completed By: Radiologist - IMPRESSION: No intracranial mass or hemorrhage is noted. The ED physician reviewed this radiology report. Course/Dx - Course Assessment/Plan: The pt is a 68 y/o female presenting to [facility] c/o ROGERS since 5 days ago. She notes fever reaching 102.9 F, chills, nausea, and R neck pain but denies CP, cough, vomiting, diarrhea, sore throat, rhinorrhea, back pain, dysuria and constipation. The neck pain radiates to the L side when she rotates her head. The ROGERS is rated 10/10 in severity. She was seen by her PCP today and sent to the ED to rule out meningitis. The pt takes ASA but not blood thinners. Head CT impression: No acute intracranial mass or hemorrhage. Chest x-ray impression: No active cardiopulmonary disease. Blood work without any significant abnormality except for the HAYES is 47, sodium 132, satting 1.22, increased LFTs and alkaline phosphatase of 150. Initially in the ED the patient was started and Rocephin and vancomycin as a patient for meningitis. Her urinalysis is contaminated therefore we will send for urine cultures. In the ED course the patient was given Benadryl, and Reglan for the headache. The patient was given Tylenol for the fever. Because of the patients having a headache and the fever went To rule out any type of meningitis. Therefore a lumbar punch was performed. Lumbar Puncture Procedure Note. After obtaining informed consent from pateint an LP was performed. Patient positioned, prepped and draped in usual sterile fashion. The L4-5 space was located using the iliac crests as landmarks. Lidocaine was used to anesthetize the area. A 22G spinal needle was introduced into the arachnoid space. The stylet was removed with appropriate fluid return. Needle removed after adequate fluid collected. Clear CSF was obtained on the first attempt. The needle was withdrawn and bandage applied. There were no complications and the patient tolerated the procedure well. After procedure neurological exam is intact. Patient tolerated the procedure well and there were no complications. Opening pressure (Obtained while patient in siting position): 18. Fluid appearance: Clear. Tube 1: Cell Count. Tube 2: Gram Stain, CSF Culture, Glucose, Protein, Other. Tube 3: Pt ID placed and held if further CSF studies indicated. Tube 4: Cell Count. I discussed my physical exam, findings and test results with Dr. Mcdonough from the hospitalist services and she agrees to admit patient to her services. Patient is hemodynamically stable alert and oriented x 3. - Febrile Illness Differential Diagnoses: Bacteremia, Meningitis, Pneumonia, Pyelonephritis, Sepsis - Diagnoses Provider Diagnoses: Headache, Fever - Provider Notifications Discussed Care Of Patient With: Marley Mcdonough - Hospitalist Time Discussed With Above Provider: 12:07 Instructed by Provider To: Admit As Inpatient Discharge - Sign-Out/Discharge Documenting (check all that apply): Patient Departure - Admit - Discharge Plan Condition: Stable Disposition: ADMITTED TO [facility] - Billing Disposition and Condition Condition: STABLE Disposition: Admitted to [facility] - Attestation Statements Document Initiated by Scribe: Yes Documenting Scribe: Jeanie To Provider For Whom Scribe is Documenting (Include Credential): Dr. Harinder Zambrano MD Scribe Attestation: Jeanie Perez , scribed for Dr. Harinder Zambrano MD on 07/29/18 at 0730. Scribe Documentation Reviewed: Yes Provider Attestation: The documentation as recorded by the scribe, Jeanie To accurately reflects the service I personally performed and the decisions made by me, Dr. Harinder Zambrano MD
[2018-07-28] MEDS ORDERED: diPHENhydraMINE IV* 50 MG/ML 1 ml VIAL (BENADRYL) IV ONE (09:56)
[2018-07-28] MEDS ORDERED: NS 0.9% 1000 ML* 1,000 ML IV ONE ×2 (09:56→12:52)
[2018-07-28] MEDS ORDERED: cefTRIAXone(*) 2 GM in NS 0.9% 100 ML* 100 ML IV ONE (09:56)
[2018-07-28] MEDS ORDERED: Acetaminophen TAB* 325 MG PO ONE (09:56)
[2018-07-28] MEDS ORDERED: Metoclopramide IV* 5 MG/ML 2 ML VIAL IV ONE (09:56)
[2018-07-28 10:48] LABS: ABS Basophils 0 10^3/ul (0-0.2); ABS Eosinophils 0 10^3/ul (0-0.6); ABS Lymphocytes 0.4 10^3/ul (1.0-4.8); ABS Monocytes 0.6 10^3/ul (0-0.8); ABS Neutrophils 5.7 10^3/ul (1.5-7.7); ABS Nucleated RBC 0 10^3/ul; Eosinophil % 0 % (0-6); Hematocrit 37 % (35-47); Hemoglobin 12.3 g/dl (12.0-16.0); Lymphocyte % 5.6 % (25-47); Mean Corpuscular HGB Conc 33 g/dl (31-36); Mean Corpuscular Hemoglobin 32 pg (27-31); Mean Corpuscular Volume 96 fL (80-97); Mean Platelet Volume 7.8 fL (7.4-10.4); Nucleated Red Blood Cells % 0; Platelet Count 179 10^3/ul (150-450); Red Blood Count 3.91 10^6/ul (4.00-5.40); Red Cell Distribution Width 14 % (10.5-15); White Blood Count 6.8 10^3/ul (3.5-10.8)
[2018-07-28 10:56] LABS: INR 0.98 (0.77-1.02)
[2018-07-28] MEDS ORDERED: cefTRIAXone(*) 2 GM in NS 0.9% 100 ML* 100 ML IVPB ONE (11:00)
[2018-07-28 11:07] LABS: EGFR Non-African American 44.1 (>60)
[2018-07-28 11:59] LABS: Urine Appearance Cloudy; Urine Blood 1+ (Negative); Urine Color Yellow; Urine Ketones Negative (Negative); Urine Protein 1+(30 mg/dL) (Negative); Urine Red Blood Cell 1+(3-5/hpf) (Absent); Urine Specific Gravity 1.011 (1.010-1.030); Urine Urobilinogen Negative (Negative); Urine White Blood Cell 3+(>20/hpf) (Absent)
[2018-07-28] MEDS ORDERED: Lidocaine 1% INJ* 10 MG/ML 30 ML SDV ONE (12:01)
[2018-07-28] MEDS ORDERED: Vancomycin(*) 1,000 MG in NS 0.9% 250 ML* 250 ML IVPB ONE (12:40)
[2018-07-28 12:55] LABS: Body Fluid Source Cerebral Spinal
[2018-07-28] MEDS ORDERED: Lidocaine 1% INJ* 10 MG/ML 30 ML SDV INJ ONE (12:57)
[2018-07-28] MEDS ORDERED: NS 0.9% 250 ML* 250 ML ONE (12:59)
[2018-07-28] MEDS ORDERED: Acetaminophen TAB* 325 MG PO PRN (13:13)
[2018-07-28] MEDS ORDERED: Vancomycin(*) 1,000 MG in NS 0.9% 250 ML* 250 ML IVPB SCH (13:15)
[2018-07-28] MEDS ORDERED: Albuterol HFA INHALER* 8 gm MDI INH PRN (13:16)
[2018-07-28] MEDS ORDERED: Meclizine TAB* 12.5 MG PO PRN (13:16)
[2018-07-28] MEDS ORDERED: Vancomycin per Pharmacy* NOTE FOLLOW UP SCH (14:00)
[2018-07-28] MEDS ORDERED: Iodixanol* (CONTRAST) 320 MG/ML 100 ML SDV IV ONE (14:43)
[2018-07-28] MEDS: Acyclovir IV(*) 500 MG in NS 0.9% 100 ML* 100 ML IVPB SCH ×2 (15:30→22:46)
[2018-07-28] MEDS: HYDROcodone/ACETAMIN 5-325 MG* 1 TAB PO PRN ×2 (15:32→22:44)
[2018-07-28] MEDS ORDERED: Iodixanol* (CONTRAST) 320 MG/ML 100 ML SDV IV SCH (16:00)
[2018-07-28] MEDS ORDERED: Ketorolac INJ* 15 MG/ML 1 ML VIAL IV PUSH ONE (19:45)
[2018-07-28] MEDS: Mometasone/Formoter 200/5 MDI INH SCH (20:16)
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
[2018-07-28] MEDS ORDERED: NS 0.9% 1000 ML* 1,000 ML IV SCH (20:45)
[2018-07-28] MEDS: cefTRIAXone(*) 2 GM in NS 0.9% 100 ML* 100 ML IVPB SCH (22:04)
[2018-07-28] MEDS: Ondansetron INJ* 2 MG/ML VIAL IV PRN (22:06)
[2018-07-29] MEDS ORDERED: Ketorolac INJ* 15 MG/ML 1 ML VIAL ONE (05:28)
[2018-07-29] MEDS: HYDROcodone/ACETAMIN 5-325 MG* 1 TAB PO PRN ×2 (05:39→21:24)
[2018-07-29] MEDS ORDERED: Ketorolac INJ* 15 MG/ML 1 ML VIAL IV PUSH PRN (05:42)
[2018-07-29 07:09] LABS: ABS Basophils 0 10^3/ul (0-0.2); ABS Eosinophils 0 10^3/ul (0-0.6); ABS Lymphocytes 0.3 10^3/ul (1.0-4.8); ABS Monocytes 0.6 10^3/ul (0-0.8); ABS Neutrophils 3.3 10^3/ul (1.5-7.7); ABS Nucleated RBC 0 10^3/ul; Eosinophil % 0.3 % (0-6); Hematocrit 33 % (35-47); Hemoglobin 10.7 g/dl (12.0-16.0); Lymphocyte % 6.8 % (25-47); Mean Corpuscular HGB Conc 32 g/dl (31-36); Mean Corpuscular Hemoglobin 31 pg (27-31); Mean Corpuscular Volume 96 fL (80-97); Mean Platelet Volume 7.6 fL (7.4-10.4); Nucleated Red Blood Cells % 0; Platelet Count 154 10^3/ul (150-450); Red Blood Count 3.44 10^6/ul (4.00-5.40); Red Cell Distribution Width 15 % (10.5-15); White Blood Count 4.2 10^3/ul (3.5-10.8)
[2018-07-29 07:14] LABS: INR 0.97 (0.77-1.02)
[2018-07-29 07:34] LABS: EGFR Non-African American 53.6 (>60)
[2018-07-29] MEDS: Acyclovir IV(*) 500 MG in NS 0.9% 100 ML* 100 ML IVPB SCH ×3 (08:15→23:46)
[2018-07-29] MEDS: Mometasone/Formoter 200/5 MDI INH SCH ×2 (08:18→19:37)
[2018-07-29] MEDS: DULoxetine DR CAP* 60 MG CAP.DR PO SCH (10:01)
[2018-07-29] MEDS: Phenytoin CAP(*) 100 MG CAP.ER PO SCH (10:02)
[2018-07-29] MEDS: FLUoxetine CAP* 20 MG PO SCH (10:02)
[2018-07-29] MEDS: amLODIPine TAB* 5 MG PO SCH (10:02)
[2018-07-29] MEDS: FLUoxetine CAP* 10 MG PO SCH (10:02)
[2018-07-29] MEDS: Metoprolol Succinate XL TAB* 50 MG PO SCH (10:04)
[2018-07-29] MEDS: Potassium Chlor TAB* 20 MEQ TAB.ER PO SCH (10:06)
[2018-07-29] MEDS: PTO: Mesalamine (NF) 1.2 GM TAB PO SCH (10:07)
[2018-07-29] MEDS: cefTRIAXone(*) 2 GM in NS 0.9% 100 ML* 100 ML IVPB SCH ×2 (11:09→23:30)
[2018-07-29] MEDS: Morphine VIAL* 4 MG/ML VIAL (1 ml vial) IV PRN ×2 (12:35→16:52)
--- NOTE | 2018-07-29 15:09 | PN ---
Subjective Date of Service: 07/29/18 Interval History: Pt seen and examined. Meds and labs reviewed. CC: ROGERS/neck pain, controllable with positioning and current pain meds. ROS: Denied dizziness, F/C, N/V, CP, SOB, increased cough, sputum production, abd pain, diarrhea, constipation, dysuria, myalgias, arthralgias, throat pain, and new skin lesions. The rest of the 14 point ROS are unremarkable. PHYSICAL EXAM: GEN APPEARANCE: Awake, not in acute distress HEENT: NC/AT, PERRLA, moist oral mucosa, (-) throat erythema NECK: Soft, supple, (-) cervical LAD, (-)JVD HEART: S1S2 WNL, RRR, No MRG CHEST: CTA, BL, GAE, No W/R/R ABD: Soft, ND/NT, NABS 4x Q EXT: No C/C/E SKIN: Warm to touch PSYCH: No active psychosis, hallucinations, depression, SI/HI NEURO: (-)Brudzinski, (-)Kernigs sign Objective Active Medications: Acetaminophen (Tylenol Tab*) 650 mg PO Q4H PRN PRN Reason: FEVER/PAIN Hydrocodone Bitart/Acetaminophen ([place] 5-325 Tab*) 1 tab PO Q8H PRN PRN Reason: PAIN Last Admin: 07/29/18 05:39 Dose: 1 tab Albuterol (Ventolin Hfa Inhaler*) 2 puff INH Q4HR PRN PRN Reason: SHORTNESS OF BREATH Amlodipine Besylate (Norvasc Tab*) 5 mg PO DAILY [facility] Last Admin: 07/29/18 10:02 Dose: 5 mg Duloxetine HCl (Cymbalta Cap*) 60 mg PO DAILY [facility] Last Admin: 07/29/18 10:01 Dose: 60 mg Fluoxetine HCl (Prozac Cap*) 20 mg PO DAILY [facility] Last Admin: 07/29/18 10:02 Dose: 20 mg Fluoxetine HCl (Prozac Cap*) 10 mg PO DAILY [facility] Last Admin: 07/29/18 10:02 Dose: 10 mg Heparin Sodium (Porcine) (Heparin Vial(*)) 5,000 units SUBCUT Q8HR [facility] Ceftriaxone Sodium 2 gm/ (Sodium Chloride) 100 mls @ 200 mls/hr IVPB Q12H [facility] Last Admin: 07/29/18 11:09 Dose: 200 mls/hr Acyclovir Sodium 500 mg/ (Sodium Chloride) 110 mls @ 110 mls/hr IVPB Q8H [facility] Last Admin: 07/29/18 08:15 Dose: 110 mls/hr Iodixanol (Visipaque* 320 (Contrast)) 80 ml IV ONCE NATHAN Stop: 07/30/18 14:42 Meclizine HCl (Antivert Tab*) 25 mg PO Q8HR PRN PRN Reason: VERTIGO Mesalamine (Lialda (Nf)) 2.4 gm PO DAILY [facility] Last Admin: 07/29/18 10:07 Dose: Not Given Metoprolol Succinate (Toprol Xl Tab*) 50 mg PO DAILY [facility] Last Admin: 07/29/18 10:04 Dose: 50 mg Mometasone Furoate/Formoterol Fumar (Dulera 200/5 Mdi*) 2 puff INH BID [facility]; Protocol Last Admin: 07/29/18 08:18 Dose: 2 puff Morphine Sulfate (Morphine Vial*) 1 mg IV Q4H PRN PRN Reason: PAIN Last Admin: 07/29/18 12:35 Dose: 1 mg Ondansetron HCl (Zofran Inj*) 4 mg IV Q4H PRN PRN Reason: NAUSEA Last Admin: 07/28/18 22:06 Dose: 4 mg Phenytoin Sodium (Dilantin Cap(*)) 400 mg PO DAILY [facility] Last Admin: 07/29/18 10:02 Dose: 400 mg Potassium Chloride (Klor Con Er Tab*) 20 meq PO DAILY [facility] Last Admin: 07/29/18 10:06 Dose: 20 meq Vital Signs - 8 hr 07/29/18 07/29/18 07/29/18 08:00 08:02 08:15 Temperature 98.8 F Pulse Rate 78 Respiratory 18 18 17 Rate Blood Pressure 129/74 (mmHg) O2 Sat by Pulse 98 Oximetry 07/29/18 07/29/18 07/29/18 11:16 12:35 14:06 Temperature 98.6 F Pulse Rate 70 Respiratory 18 18 17 Rate Blood Pressure 120/83 (mmHg) O2 Sat by Pulse 98 Oximetry Oxygen Devices in Use Now: None Result Diagrams: 07/29/18 07:00 07/29/18 07:00 Microbiology and Other Data: Microbiology 07/28/18 11:39 Urine Culture - Preliminary Urine Escherichia Coli 07/28/18 10:53 Aerobic Blood Culture - Preliminary Blood Venous No Growth Day 1 Anaerobic Blood Culture - Preliminary No Growth Day 1 07/28/18 12:35 CSF Gram Stain (Tube 3) - Final Cerebral Spinal Fluid CSF Culture - Preliminary No Growth Day 1 07/28/18 10:34 Aerobic Blood Culture - Preliminary Blood Venous Escherichia Coli Anaerobic Blood Culture - Preliminary Escherichia Coli 07/28/18 14:14 Influenza Types A,B Antigen - Final Nasopharyngeal Specimen received for Influenza A/B Molecular testing Assess/Plan/Problems-Billing Assessment: - Patient Problems (1) Headache Current Visit: Yes Status: Acute Code(s): R51 - HEADACHE SNOMED Code(s): 41847209 Comment: -Continue on Rocephin and Acyclovir given history of mouth sores and new onset ROGERS and neck pain for 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 coli bacteremia -Awaiting Herpes simplex PCR results -Continue PRN pain meds (2) Sepsis secondary to UTI Current Visit: Yes Status: Acute Code(s): A41.9 - SEPSIS, UNSPECIFIED ORGANISM; N39.0 - URINARY TRACT INFECTION, SITE NOT SPECIFIED SNOMED Code(s): 524559357 Comment: -Sepsis improved -Unclear whether ROGERS presumed to be due to asceptic meningitis is exacerbated or due to it -Continue Rocephin -Urine and Blood Cx: E. coli; awaiting sensitivity data -D/C IVF (3) CKD (chronic kidney disease) Current Visit: Yes Status: Acute Code(s): N18.9 - CHRONIC KIDNEY DISEASE, UNSPECIFIED SNOMED Code(s): 366901378 Comment: -Stable -D/C IVF (4) Hypertension Current Visit: Yes Status: Acute Code(s): I10 - ESSENTIAL (PRIMARY) HYPERTENSION SNOMED Code(s): 90729828 Comment: -Well-controlled -Continue Amlodipine and Metoprolol (5) DVT prophylaxis Current Visit: Yes Status: Acute Code(s): [id number] - SNOMED Code(s): 287624728 Comment: -Placed pt on Heparin SQq8H Status and Disposition: -For PT eval
[2018-07-29] MEDS: Heparin VIAL(*) 5000 UNITS/ML VIAL (FIVE THOUSAND) SUBCUT SCH ×2 (15:34→21:26)
[2018-07-29] MEDS ORDERED: SUMAtriptan SQ* 6 MG/0.5 ML VIAL SUBCUT PRN (21:03)
[2018-07-29] MEDS: Ondansetron INJ* 2 MG/ML VIAL IV PRN (21:22)
[2018-07-30] MEDS: HYDROcodone/ACETAMIN 5-325 MG* 1 TAB PO PRN ×3 (03:23→23:56)
[2018-07-30] MEDS: Acyclovir IV(*) 500 MG in NS 0.9% 100 ML* 100 ML IVPB SCH ×3 (05:55→23:56)
[2018-07-30] MEDS: Heparin VIAL(*) 5000 UNITS/ML VIAL (FIVE THOUSAND) SUBCUT SCH ×3 (05:58→21:42)
[2018-07-30] MEDS: Mometasone/Formoter 200/5 MDI INH SCH ×3 (06:42→20:54)
[2018-07-30 08:21] LABS: Hematocrit 34 % (35-47); Hemoglobin 11.5 g/dl (12.0-16.0); Mean Corpuscular HGB Conc 33 g/dl (31-36); Mean Corpuscular Hemoglobin 32 pg (27-31); Mean Corpuscular Volume 96 fL (80-97); Mean Platelet Volume 7.2 fL (7.4-10.4); Platelet Count 170 10^3/ul (150-450); Red Blood Count 3.59 10^6/ul (4.00-5.40); Red Cell Distribution Width 15 % (10.5-15); White Blood Count 3.1 10^3/ul (3.5-10.8)
[2018-07-30 08:41] LABS: EGFR Non-African American 56.8 (>60)
[2018-07-30 09:00] LABS: ABS Eosinophils 0.13 10^3/ul (0-0.6); ABS Lymphocytes 0.41 10^3/ul (1.0-4.8); ABS Monocytes 0.56 10^3/ul (0-0.8); ABS Neutrophils 2.02 10^3/ul (1.5-7.7); Eosinophil % 4 % (0-6); Lymphocyte % 13 % (25-47)
[2018-07-30] MEDS: oxyCODONE TAB* 5 MG TAB PO PRN ×4 (10:45→19:54)
[2018-07-30] MEDS: Ondansetron INJ* 2 MG/ML VIAL IV PRN ×3 (10:45→19:54)
[2018-07-30] MEDS: Metoprolol Succinate XL TAB* 50 MG PO SCH (10:50)
[2018-07-30] MEDS: amLODIPine TAB* 5 MG PO SCH (10:51)
[2018-07-30] MEDS: FLUoxetine CAP* 20 MG PO SCH (10:51)
[2018-07-30] MEDS: FLUoxetine CAP* 10 MG PO SCH (10:51)
[2018-07-30] MEDS: Acetaminophen TAB* 325 MG PO SCH ×2 (10:52→21:41)
[2018-07-30] MEDS: Phenytoin CAP(*) 100 MG CAP.ER PO SCH (10:52)
[2018-07-30] MEDS: Potassium Chlor TAB* 20 MEQ TAB.ER PO SCH (10:53)
[2018-07-30] MEDS: PTO: Mesalamine (NF) 1.2 GM TAB PO SCH (10:54)
[2018-07-30] MEDS: DULoxetine DR CAP* 60 MG CAP.DR PO SCH (10:57)
[2018-07-30] MEDS: cefTRIAXone(*) 2 GM in NS 0.9% 100 ML* 100 ML IVPB SCH ×2 (12:48→23:56)
--- NOTE | 2018-07-30 15:15 | PN ---
Subjective Date of Service: 07/30/18 Interval History: Pt seen and examined. Meds and labs reviewed. Pt complained of ROGERS last night and was given Imitrex w/c she mentions has helped. CC: ROGERS/neck pain, controllable with positioning and current pain meds. ROGERS not improved ROS: Denied dizziness, F/C, N/V, CP, SOB, increased cough, sputum production, abd pain, diarrhea, constipation, dysuria, myalgias, arthralgias, throat pain, and new skin lesions. The rest of the 14 point ROS are unremarkable. PHYSICAL EXAM: GEN APPEARANCE: Awake, not in acute distress HEENT: NC/AT, PERRLA, moist oral mucosa, (-) throat erythema NECK: Soft, supple, (-) cervical LAD, (-)JVD HEART: S1S2 WNL, RRR, No MRG CHEST: CTA, BL, GAE, No W/R/R ABD: Soft, ND/NT, NABS 4x Q EXT: No C/C/E SKIN: Warm to touch PSYCH: No active psychosis, hallucinations, depression, SI/HI NEURO: (-)Brudzinski, (-)Kernigs sign Objective Active Medications: Acetaminophen (Tylenol Tab*) 650 mg PO Q4H PRN PRN Reason: FEVER/PAIN Last Admin: 07/30/18 05:57 Dose: 650 mg Acetaminophen (Tylenol Tab*) 975 mg PO BID [facility] Last Admin: 07/30/18 10:52 Dose: 975 mg Hydrocodone Bitart/Acetaminophen ([place] 5-325 Tab*) 1 tab PO Q6H PRN PRN Reason: PAIN Last Admin: 07/30/18 03:23 Dose: 1 tab Albuterol (Ventolin Hfa Inhaler*) 2 puff INH Q4HR PRN PRN Reason: SHORTNESS OF BREATH Amlodipine Besylate (Norvasc Tab*) 5 mg PO DAILY [facility] Last Admin: 07/30/18 10:51 Dose: 5 mg Duloxetine HCl (Cymbalta Cap*) 60 mg PO DAILY [facility] Last Admin: 07/30/18 10:57 Dose: 60 mg Fluoxetine HCl (Prozac Cap*) 20 mg PO DAILY [facility] Last Admin: 07/30/18 10:51 Dose: 20 mg Fluoxetine HCl (Prozac Cap*) 10 mg PO DAILY [facility] Last Admin: 07/30/18 10:51 Dose: 10 mg Heparin Sodium (Porcine) (Heparin Vial(*)) 5,000 units SUBCUT Q8HR [facility] Last Admin: 07/30/18 14:58 Dose: 5,000 units Ceftriaxone Sodium 2 gm/ (Sodium Chloride) 100 mls @ 200 mls/hr IVPB Q12H [facility] Last Admin: 07/30/18 12:48 Dose: 200 mls/hr Acyclovir Sodium 500 mg/ (Sodium Chloride) 110 mls @ 110 mls/hr IVPB Q8H [facility] Last Admin: 07/30/18 05:55 Dose: 110 mls/hr Meclizine HCl (Antivert Tab*) 25 mg PO Q8HR PRN PRN Reason: VERTIGO Mesalamine (Lialda (Nf)) 2.4 gm PO DAILY [facility] Last Admin: 07/30/18 10:54 Dose: Not Given Metoprolol Succinate (Toprol Xl Tab*) 50 mg PO DAILY [facility] Last Admin: 07/30/18 10:50 Dose: 50 mg Mometasone Furoate/Formoterol Fumar (Dulera 200/5 Mdi*) 2 puff INH BID [facility]; Protocol Last Admin: 07/30/18 08:20 Dose: Not Given Morphine Sulfate (Morphine Vial*) 1 mg IV Q4H PRN PRN Reason: PAIN Last Admin: 07/29/18 16:52 Dose: 1 mg Ondansetron HCl (Zofran Inj*) 4 mg IV Q4H PRN PRN Reason: NAUSEA Last Admin: 07/30/18 14:58 Dose: 4 mg Oxycodone HCl (Roxycodone Tab*) 5 mg PO Q4H PRN PRN Reason: Pain breakthroughs only Last Admin: 07/30/18 14:57 Dose: 5 mg Phenytoin Sodium (Dilantin Cap(*)) 400 mg PO DAILY [facility] Last Admin: 07/29/18 10:02 Dose: 400 mg Potassium Chloride (Klor Con Er Tab*) 20 meq PO DAILY [facility] Last Admin: 07/30/18 10:53 Dose: 20 meq Vital Signs - 8 hr 07/30/18 07/30/18 07/30/18 08:00 09:12 10:45 Temperature 97.5 F Pulse Rate 63 Respiratory 16 16 20 Rate Blood Pressure 145/84 (mmHg) O2 Sat by Pulse 99 Oximetry 07/30/18 07/30/18 07/30/18 12:12 12:50 14:57 Temperature 97.4 F Pulse Rate 55 Respiratory 18 16 16 Rate Blood Pressure 125/68 (mmHg) O2 Sat by Pulse 97 Oximetry Oxygen Devices in Use Now: None Result Diagrams: 07/30/18 08:13 07/30/18 08:13 Microbiology and Other Data: Microbiology 07/28/18 11:39 Urine Culture - Preliminary Urine Escherichia Coli 07/28/18 10:53 Aerobic Blood Culture - Preliminary Blood Venous No Growth Day 1 Anaerobic Blood Culture - Preliminary No Growth Day 1 07/28/18 12:35 CSF Gram Stain (Tube 3) - Final Cerebral Spinal Fluid CSF Culture - Preliminary No Growth Day 1 07/28/18 10:34 Aerobic Blood Culture - Preliminary Blood Venous Escherichia Coli Anaerobic Blood Culture - Preliminary Escherichia Coli 07/28/18 14:14 Influenza Types A,B Antigen - Final Nasopharyngeal Specimen received for Influenza A/B Molecular testing Assess/Plan/Problems-Billing Assessment: - Patient Problems (1) Headache Current Visit: Yes Status: Acute Code(s): R51 - HEADACHE SNOMED Code(s): 51668058 Comment: -Continue on Rocephin and Acyclovir given history of mouth sores and new onset ROGERS and neck pain for 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 coli bacteremia -Awaiting Herpes simplex PCR results -CSF Cx (-) growth x 2 days -Added PRN [place] and Oxycodone to her regimen along with Tylenol BID (2) Sepsis secondary to UTI Current Visit: Yes Status: Acute Code(s): A41.9 - SEPSIS, UNSPECIFIED ORGANISM; N39.0 - URINARY TRACT INFECTION, SITE NOT SPECIFIED SNOMED Code(s): 183767131 Comment: -Sepsis resolved -Unclear whether ROGERS presumed to be due to asceptic meningitis is exacerbated or due to it---left message at Dr. Aleman voicemail, however, got message that he wont be back in town until Thursday -Continue Rocephin -Urine and Blood Cx: E. coli; sensitive to Rocephin (3) CKD (chronic kidney disease) Current Visit: Yes Status: Acute Code(s): N18.9 - CHRONIC KIDNEY DISEASE, UNSPECIFIED SNOMED Code(s): 705884759 Comment: -Stable -Continue watchful waiting (4) Hypertension Current Visit: Yes Status: Acute Code(s): I10 - ESSENTIAL (PRIMARY) HYPERTENSION SNOMED Code(s): 29907047 Comment: -Well-controlled -Continue Amlodipine and Metoprolol (5) DVT prophylaxis Current Visit: Yes Status: Acute Code(s): PPR0182 - SNOMED Code(s): 693358862 Comment: -Placed pt on Heparin SQq8H Status and Disposition: -For PT eval
[2018-07-31] MEDS ORDERED: SUMAtriptan SQ* 6 MG/0.5 ML VIAL SUBCUT ONE (02:30)
[2018-07-31 05:52] LABS: ABS Basophils 0 10^3/ul (0-0.2); ABS Eosinophils 0.1 10^3/ul (0-0.6); ABS Lymphocytes 0.6 10^3/ul (1.0-4.8); ABS Monocytes 0.3 10^3/ul (0-0.8); ABS Neutrophils 1.8 10^3/ul (1.5-7.7); ABS Nucleated RBC 0 10^3/ul; Eosinophil % 4.6 % (0-6); Hematocrit 35 % (35-47); Hemoglobin 11.6 g/dl (12.0-16.0); Lymphocyte % 21.2 % (25-47); Mean Corpuscular HGB Conc 33 g/dl (31-36); Mean Corpuscular Hemoglobin 31 pg (27-31); Mean Corpuscular Volume 96 fL (80-97); Mean Platelet Volume 7.3 fL (7.4-10.4); Nucleated Red Blood Cells % 0.2; Platelet Count 193 10^3/ul (150-450); Red Blood Count 3.68 10^6/ul (4.00-5.40); Red Cell Distribution Width 14 % (10.5-15); White Blood Count 2.9 10^3/ul (3.5-10.8)
[2018-07-31] MEDS: Acyclovir IV(*) 500 MG in NS 0.9% 100 ML* 100 ML IVPB SCH ×2 (05:54→15:30)
[2018-07-31] MEDS: oxyCODONE TAB* 5 MG TAB PO PRN ×3 (06:04→15:36)
[2018-07-31] MEDS: Ondansetron INJ* 2 MG/ML VIAL IV PRN (06:05)
[2018-07-31] MEDS: Heparin VIAL(*) 5000 UNITS/ML VIAL (FIVE THOUSAND) SUBCUT SCH ×3 (06:11→21:26)
[2018-07-31 06:18] LABS: EGFR Non-African American 61.1 (>60)
[2018-07-31] MEDS: Mometasone/Formoter 200/5 MDI INH SCH ×2 (07:23→20:19)
[2018-07-31] MEDS: HYDROcodone/ACETAMIN 5-325 MG* 1 TAB PO PRN ×2 (08:08→14:34)
[2018-07-31] MEDS ORDERED: Magnesium Sulfate 2 GM IV* 2 GM/50 ML BAG IVPB ONE (09:24)
[2018-07-31] MEDS: Metoprolol Succinate XL TAB* 50 MG PO SCH (09:36)
[2018-07-31] MEDS: Phenytoin CAP(*) 100 MG CAP.ER PO SCH (09:36)
[2018-07-31] MEDS: amLODIPine TAB* 5 MG PO SCH (09:36)
[2018-07-31] MEDS: FLUoxetine CAP* 20 MG PO SCH (09:37)
[2018-07-31] MEDS: Potassium Chlor TAB* 20 MEQ TAB.ER PO SCH (09:38)
[2018-07-31] MEDS: FLUoxetine CAP* 10 MG PO SCH (09:38)
[2018-07-31] MEDS: DULoxetine DR CAP* 60 MG CAP.DR PO SCH (09:38)
[2018-07-31] MEDS: PTO: Mesalamine (NF) 1.2 GM TAB PO SCH (09:39)
[2018-07-31] MEDS: Acetaminophen TAB* 325 MG PO SCH ×2 (09:39→21:24)
[2018-07-31] MEDS: cefTRIAXone(*) 2 GM in NS 0.9% 100 ML* 100 ML IVPB SCH ×2 (11:17→23:22)
[2018-07-31] MEDS: Morphine VIAL* 4 MG/ML VIAL (1 ml vial) IV PRN (14:32)
[2018-07-31] MEDS: Gabapentin CAP(*) 100 MG PO SCH ×2 (15:30→21:23)
--- NOTE | 2018-07-31 16:43 | PN ---
Subjective Date of Service: 07/31/18 Interval History: Pt seen and examined. Meds and labs reviewed. Pt again complained of ROGERS last night and was given Imitrex w/c she mentions has helped. Pt mentioned she was previously diagnosed with migraine Has many years ago and was placed on Imitrex but only required treatment for 1 month and did not reccur until this admission. Pt also was placed on Gabapentin in the past w/c was D/Cd given resolution of migraines. CC: ROGERS/neck pain, controllable with positioning and current pain meds. ROGERS seems to only improve significantly with Imitrex ROS: Denied dizziness, F/C, N/V, CP, SOB, increased cough, sputum production, abd pain, diarrhea, constipation, dysuria, myalgias, arthralgias, throat pain, and new skin lesions. The rest of the 14 point ROS are unremarkable. PHYSICAL EXAM: GEN APPEARANCE: Awake, not in acute distress HEENT: NC/AT, PERRLA, moist oral mucosa, (-) throat erythema NECK: Soft, supple, (-) cervical LAD, (-)JVD HEART: S1S2 WNL, RRR, No MRG CHEST: CTA, BL, GAE, No W/R/R ABD: Soft, ND/NT, NABS 4x Q EXT: No C/C/E SKIN: Warm to touch PSYCH: No active psychosis, hallucinations, depression, SI/HI NEURO: (-)Brudzinski, (-)Kernigs sign Objective Active Medications: Acetaminophen (Tylenol Tab*) 650 mg PO Q4H PRN PRN Reason: FEVER/PAIN Last Admin: 07/30/18 05:57 Dose: 650 mg Acetaminophen (Tylenol Tab*) 975 mg PO BID [facility] Last Admin: 07/31/18 09:39 Dose: 975 mg Hydrocodone Bitart/Acetaminophen ([place] 5-325 Tab*) 1 tab PO Q6H PRN PRN Reason: PAIN Last Admin: 07/31/18 14:34 Dose: 1 tab Albuterol (Ventolin Hfa Inhaler*) 2 puff INH Q4HR PRN PRN Reason: SHORTNESS OF BREATH Amlodipine Besylate (Norvasc Tab*) 5 mg PO DAILY [facility] Last Admin: 07/31/18 09:36 Dose: 5 mg Duloxetine HCl (Cymbalta Cap*) 60 mg PO DAILY [facility] Last Admin: 07/31/18 09:38 Dose: 60 mg Fluoxetine HCl (Prozac Cap*) 20 mg PO DAILY [facility] Last Admin: 07/31/18 09:37 Dose: 20 mg Fluoxetine HCl (Prozac Cap*) 10 mg PO DAILY [facility] Last Admin: 07/31/18 09:38 Dose: 10 mg Gabapentin (Neurontin Cap(*)) 200 mg PO TID [facility] Last Admin: 07/31/18 15:30 Dose: 200 mg Heparin Sodium (Porcine) (Heparin Vial(*)) 5,000 units SUBCUT Q8HR [facility] Last Admin: 07/31/18 14:35 Dose: 5,000 units Ceftriaxone Sodium 2 gm/ (Sodium Chloride) 100 mls @ 200 mls/hr IVPB Q12H [facility] Last Admin: 07/31/18 11:17 Dose: 200 mls/hr Acyclovir Sodium 500 mg/ (Sodium Chloride) 110 mls @ 110 mls/hr IVPB Q8H [facility] Last Admin: 07/31/18 15:30 Dose: 110 mls/hr Meclizine HCl (Antivert Tab*) 25 mg PO Q8HR PRN PRN Reason: VERTIGO Mesalamine (Lialda (Nf)) 2.4 gm PO DAILY [facility] Last Admin: 07/31/18 09:39 Dose: 2.4 gm Metoprolol Succinate (Toprol Xl Tab*) 50 mg PO DAILY [facility] Last Admin: 07/31/18 09:36 Dose: 50 mg Mometasone Furoate/Formoterol Fumar (Dulera 200/5 Mdi*) 2 puff INH BID [facility]; Protocol Last Admin: 07/31/18 07:23 Dose: 2 puff Morphine Sulfate (Morphine Vial*) 1 mg IV Q4H PRN PRN Reason: PAIN Last Admin: 07/31/18 14:32 Dose: 1 mg Ondansetron HCl (Zofran Inj*) 4 mg IV Q4H PRN PRN Reason: NAUSEA Last Admin: 07/31/18 06:05 Dose: 4 mg Oxycodone HCl (Roxycodone Tab*) 5 mg PO Q4H PRN PRN Reason: Pain breakthroughs only Last Admin: 07/31/18 15:36 Dose: 5 mg Phenytoin Sodium (Dilantin Cap(*)) 400 mg PO DAILY [facility] Last Admin: 07/31/18 09:36 Dose: 400 mg Potassium Chloride (Klor Con Er Tab*) 20 meq PO DAILY [facility] Last Admin: 07/31/18 09:38 Dose: 20 meq Sumatriptan Succinate (Imitrex Sq*) 6 mg SUBCUT Q12H PRN PRN Reason: Headache breakthroughs Vital Signs - 8 hr 07/31/18 07/31/18 07/31/18 11:19 14:32 14:34 Respiratory 16 18 18 Rate 07/31/18 07/31/18 15:30 15:36 Respiratory 16 16 Rate Oxygen Devices in Use Now: None Result Diagrams: 07/31/18 05:41 07/31/18 05:41 Microbiology and Other Data: Microbiology 07/28/18 11:39 Urine Culture - Preliminary Urine Escherichia Coli 07/28/18 10:53 Aerobic Blood Culture - Preliminary Blood Venous No Growth Day 1 Anaerobic Blood Culture - Preliminary No Growth Day 1 07/28/18 12:35 CSF Gram Stain (Tube 3) - Final Cerebral Spinal Fluid CSF Culture - Preliminary No Growth Day 1 07/28/18 10:34 Aerobic Blood Culture - Preliminary Blood Venous Escherichia Coli Anaerobic Blood Culture - Preliminary Escherichia Coli 07/28/18 14:14 Influenza Types A,B Antigen - Final Nasopharyngeal Specimen received for Influenza A/B Molecular testing Assess/Plan/Problems-Billing Assessment: - Patient Problems (1) Headache Current Visit: Yes Status: Acute Code(s): R51 - HEADACHE SNOMED Code(s): 66051863 Comment: -Continue on Rocephin and Acyclovir given history of mouth sores and new onset ROGERS and neck pain for 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 coli bacteremia -Awaiting Herpes simplex PCR results -CSF Cx (-) growth x 3 days -Continue PRN [place] and Oxycodone to her regimen along with Tylenol BID -Unclear whether ROGERS is a recurrence of migraines since it only significantly responds to Imitrex in comparison to pain meds currently ordered vs. ROGERS induced by early sepsis and subsequent lumbar tap vs. asceptic meningitis---will await eval by Dr. Slade to further clarify -Will place pt on Gabapentin as ordered and PRN Imitrex (2) Elevated LFTs Current Visit: Yes Status: Acute Code(s): R94.5 - ABNORMAL RESULTS OF LIVER FUNCTION STUDIES SNOMED Code(s): 317216292 Comment: -Improving, however, previous draws from previous encounters/admissions were WNL -U/S suggests hepatomegaly w/c could suggests some hepatosteatosis -Will screen for viral causes of hepatitis -Given above ROGERS, will eval for Anaplasmosis/Ehrlichia and [place]. Will add on EBV PCR from CSF drawn on admission (3) Sepsis secondary to UTI Current Visit: Yes Status: Acute Code(s): A41.9 - SEPSIS, UNSPECIFIED ORGANISM; N39.0 - URINARY TRACT INFECTION, SITE NOT SPECIFIED SNOMED Code(s): 280849248 Comment: -Sepsis resolved -Please see above discussion -Continue Rocephin -Urine and Blood Cx: E. coli; sensitive to Rocephin (4) CKD (chronic kidney disease) Current Visit: Yes Status: Acute Code(s): N18.9 - CHRONIC KIDNEY DISEASE, UNSPECIFIED SNOMED Code(s): 098265899 Comment: -Stable -Continue watchful waiting (5) Hypertension Current Visit: Yes Status: Acute Code(s): I10 - ESSENTIAL (PRIMARY) HYPERTENSION SNOMED Code(s): 93203497 Comment: -Well-controlled -Continue Amlodipine and Metoprolol (6) DVT prophylaxis Current Visit: Yes Status: Acute Code(s): HAU6150 - SNOMED Code(s): 362812649 Comment: -Placed pt on Heparin SQq8H Status and Disposition: -Appreciate PT evano identified needs -Possible D/C in 2-3 days
[2018-07-31] MEDS: SUMAtriptan SQ* 6 MG/0.5 ML VIAL SUBCUT PRN (21:25)
[2018-08-01] MEDS: Acyclovir IV(*) 500 MG in NS 0.9% 100 ML* 100 ML IVPB SCH ×4 (00:04→22:00)
[2018-08-01] MEDS: Heparin VIAL(*) 5000 UNITS/ML VIAL (FIVE THOUSAND) SUBCUT SCH ×3 (06:11→22:03)
[2018-08-01 06:20] LABS: ABS Basophils 0 10^3/ul (0-0.2); ABS Eosinophils 0.2 10^3/ul (0-0.6); ABS Lymphocytes 0.7 10^3/ul (1.0-4.8); ABS Monocytes 0.3 10^3/ul (0-0.8); ABS Neutrophils 1.7 10^3/ul (1.5-7.7); ABS Nucleated RBC 0 10^3/ul; Hematocrit 37 % (35-47); Hemoglobin 12.2 g/dl (12.0-16.0); Lymphocyte % 23.2 % (25-47); Mean Corpuscular HGB Conc 33 g/dl (31-36); Mean Corpuscular Hemoglobin 31 pg (27-31); Mean Corpuscular Volume 96 fL (80-97); Mean Platelet Volume 7.5 fL (7.4-10.4); Nucleated Red Blood Cells % 0.2; Platelet Count 243 10^3/ul (150-450); Red Cell Distribution Width 15 % (10.5-15); White Blood Count 2.9 10^3/ul (3.5-10.8)
[2018-08-01 06:40] LABS: EGFR Non-African American 61.1 (>60)
[2018-08-01] MEDS: Mometasone/Formoter 200/5 MDI INH SCH ×2 (07:39→20:02)
[2018-08-01] MEDS: amLODIPine TAB* 5 MG PO SCH (09:35)
[2018-08-01] MEDS: Acetaminophen TAB* 325 MG PO SCH ×2 (09:35→22:00)
[2018-08-01] MEDS: FLUoxetine CAP* 10 MG PO SCH (09:35)
[2018-08-01] MEDS: FLUoxetine CAP* 20 MG PO SCH (09:35)
[2018-08-01] MEDS: Phenytoin CAP(*) 100 MG CAP.ER PO SCH (09:36)
[2018-08-01] MEDS: DULoxetine DR CAP* 60 MG CAP.DR PO SCH (09:36)
[2018-08-01] MEDS: Potassium Chlor TAB* 20 MEQ TAB.ER PO SCH (09:36)
[2018-08-01] MEDS: Metoprolol Succinate XL TAB* 50 MG PO SCH (09:36)
[2018-08-01] MEDS: Gabapentin CAP(*) 100 MG PO SCH ×3 (09:42→22:01)
[2018-08-01] MEDS: SUMAtriptan SQ* 6 MG/0.5 ML VIAL SUBCUT PRN ×2 (09:44→22:02)
[2018-08-01] MEDS: cefTRIAXone(*) 2 GM in NS 0.9% 100 ML* 100 ML IVPB SCH (11:30)
[2018-08-01] MEDS: PTO: Mesalamine (NF) 1.2 GM TAB PO SCH (11:59)
--- NOTE | 2018-08-01 18:24 | PN ---
Subjective Date of Service: 08/01/18 Interval History: Pt is feeling much better today than she has in 1 week. She states her headache is finally improving. She received a dose of imitrex this AM and since then the pain has remained at a low level. She is very afraid of going home tonight due to the concern of developing worsening pain again. No further fevers. No issues with bowel or bladder. Objective Active Medications: Acetaminophen (Tylenol Tab*) 650 mg PO Q4H PRN PRN Reason: FEVER/PAIN Last Admin: 07/30/18 05:57 Dose: 650 mg Acetaminophen (Tylenol Tab*) 975 mg PO BID [facility] Last Admin: 08/01/18 09:35 Dose: 975 mg Hydrocodone Bitart/Acetaminophen ([place] 5-325 Tab*) 1 tab PO Q6H PRN PRN Reason: PAIN Last Admin: 07/31/18 14:34 Dose: 1 tab Albuterol (Ventolin Hfa Inhaler*) 2 puff INH Q4HR PRN PRN Reason: SHORTNESS OF BREATH Amlodipine Besylate (Norvasc Tab*) 5 mg PO DAILY [facility] Last Admin: 08/01/18 09:35 Dose: 5 mg Duloxetine HCl (Cymbalta Cap*) 60 mg PO DAILY [facility] Last Admin: 08/01/18 09:36 Dose: 60 mg Fluoxetine HCl (Prozac Cap*) 20 mg PO DAILY [facility] Last Admin: 08/01/18 09:35 Dose: 20 mg Fluoxetine HCl (Prozac Cap*) 10 mg PO DAILY [facility] Last Admin: 08/01/18 09:35 Dose: 10 mg Gabapentin (Neurontin Cap(*)) 200 mg PO TID [facility] Last Admin: 08/01/18 13:58 Dose: 200 mg Heparin Sodium (Porcine) (Heparin Vial(*)) 5,000 units SUBCUT Q8HR [facility] Last Admin: 08/01/18 14:00 Dose: 5,000 units Ceftriaxone Sodium 2 gm/ (Sodium Chloride) 100 mls @ 200 mls/hr IVPB Q12H [facility] Last Admin: 08/01/18 11:30 Dose: 200 mls/hr Acyclovir Sodium 500 mg/ (Sodium Chloride) 110 mls @ 110 mls/hr IVPB Q8H [facility] Last Admin: 08/01/18 16:12 Dose: 110 mls/hr Meclizine HCl (Antivert Tab*) 25 mg PO Q8HR PRN PRN Reason: VERTIGO Mesalamine (Lialda (Nf)) 2.4 gm PO DAILY [facility] Last Admin: 08/01/18 11:59 Dose: Not Given Metoprolol Succinate (Toprol Xl Tab*) 50 mg PO DAILY [facility] Last Admin: 08/01/18 09:36 Dose: 50 mg Mometasone Furoate/Formoterol Fumar (Dulera 200/5 Mdi*) 2 puff INH BID [facility]; Protocol Last Admin: 08/01/18 07:39 Dose: 2 puff Morphine Sulfate (Morphine Vial*) 1 mg IV Q4H PRN PRN Reason: PAIN Last Admin: 07/31/18 14:32 Dose: 1 mg Ondansetron HCl (Zofran Inj*) 4 mg IV Q4H PRN PRN Reason: NAUSEA Last Admin: 07/31/18 06:05 Dose: 4 mg Oxycodone HCl (Roxycodone Tab*) 5 mg PO Q4H PRN PRN Reason: Pain breakthroughs only Last Admin: 07/31/18 15:36 Dose: 5 mg Phenytoin Sodium (Dilantin Cap(*)) 400 mg PO DAILY [facility] Last Admin: 08/01/18 09:36 Dose: 400 mg Potassium Chloride (Klor Con Er Tab*) 20 meq PO DAILY [facility] Last Admin: 08/01/18 09:36 Dose: 20 meq Sumatriptan Succinate (Imitrex Sq*) 6 mg SUBCUT Q12H PRN PRN Reason: Headache breakthroughs Last Admin: 08/01/18 09:44 Dose: 6 mg Vital Signs - 8 hr 08/01/18 08/01/18 08/01/18 11:33 13:58 15:40 Temperature 98.3 F 98.3 F Pulse Rate 63 66 Respiratory 16 16 24 Rate Blood Pressure 134/76 126/77 (mmHg) O2 Sat by Pulse 97 98 Oximetry 08/01/18 16:00 Temperature Pulse Rate Respiratory 16 Rate Blood Pressure (mmHg) O2 Sat by Pulse Oximetry Oxygen Devices in Use Now: None Appearance: Middle aged female sitting on the edge of the bed, NAD Eyes: No Scleral Icterus Ears/Nose/Mouth/Throat: Mucous Membranes Moist Respiratory: Symmetrical Chest Expansion and Respiratory Effort, Clear to Auscultation Cardiovascular: NL Sounds; No Murmurs; No JVD, RRR, No Edema Extremities: No Clubbing, Cyanosis Skin: No Nodules or Sclerosis Neurological: Alert and Oriented x 3 Result Diagrams: 08/01/18 05:35 08/01/18 05:35 Microbiology and Other Data: Microbiology 07/28/18 11:39 Urine Culture - Preliminary Urine Escherichia Coli 07/28/18 10:53 Aerobic Blood Culture - Preliminary Blood Venous No Growth Day 1 Anaerobic Blood Culture - Preliminary No Growth Day 1 07/28/18 12:35 CSF Gram Stain (Tube 3) - Final Cerebral Spinal Fluid CSF Culture - Preliminary No Growth Day 1 07/28/18 10:34 Aerobic Blood Culture - Preliminary Blood Venous Escherichia Coli Anaerobic Blood Culture - Preliminary Escherichia Coli 07/28/18 14:14 Influenza Types A,B Antigen - Final Nasopharyngeal Specimen received for Influenza A/B Molecular testing Assess/Plan/Problems-Billing Ms Sanchez is a 68 yo F who has a h/o HTN, seizure disorder, stage III CKD and UC who presented to the ER with c/o headache. - Patient Problems (1) Headache Current Visit: Yes Status: Acute Code(s): R51 - HEADACHE SNOMED Code(s): 14466719 Comment: Unclear cause. ? viral meningitis vs headache related to being acutely ill from sepsis secondary to Ecoli UTI and bacteremia vs migraine. Overall pt improving as of today. Will continue current medication regimen and if headache remains improved tomorrow will d/c home. (2) E. coli UTI Current Visit: Yes Status: Acute Code(s): N39.0 - URINARY TRACT INFECTION, SITE NOT SPECIFIED; B96.20 - UNSP ESCHERICHIA COLI THE CAUSE OF DISEASES CLASSD ELSWHR SNOMED Code(s): 228359160 Comment: Pt with E coli UTI and bacteremia present on admission. She was septic by sepsis 2 criteria but did not have any end organ dysfunction. Will need Abx therapy for 14 days. Change from ceftriaxone to doxycycine to finish the course of therapy. (3) Elevated LFTs Current Visit: Yes Status: Acute Code(s): R94.5 - ABNORMAL RESULTS OF LIVER FUNCTION STUDIES SNOMED Code(s): 971479609 Comment: LFTs have fluctuated some since admission (down then back up slightly today). ? secondary to UTI. Liver with mild hepatomegaly. Will need to follow LFTs. (4) CKD (chronic kidney disease) Current Visit: Yes Status: Acute Code(s): N18.9 - CHRONIC KIDNEY DISEASE, UNSPECIFIED SNOMED Code(s): 252950728 Comment: Creatinine at baseline. Continue to monitor intermittently. (5) Hypertension Current Visit: Yes Status: Acute Code(s): I10 - ESSENTIAL (PRIMARY) HYPERTENSION SNOMED Code(s): 88707804 Comment: BP under control on home medication regimen. (6) DVT prophylaxis Current Visit: Yes Status: Acute Code(s): OOI1752 - SNOMED Code(s): 195711430 Comment: SQ heparin (7) Full code status Current Visit: Yes Status: Acute Code(s): Z78.9 - OTHER SPECIFIED HEALTH STATUS SNOMED Code(s): 540830055 Status and Disposition: .
[2018-08-02] MEDS: Heparin VIAL(*) 5000 UNITS/ML VIAL (FIVE THOUSAND) SUBCUT SCH ×3 (06:02→21:23)
[2018-08-02] MEDS: Acyclovir IV(*) 500 MG in NS 0.9% 100 ML* 100 ML IVPB SCH (06:02)
[2018-08-02] MEDS: Mometasone/Formoter 200/5 MDI INH SCH ×2 (08:06→20:33)
[2018-08-02] MEDS: Phenytoin CAP(*) 100 MG CAP.ER PO SCH (09:39)
[2018-08-02] MEDS: SUMAtriptan SQ* 6 MG/0.5 ML VIAL SUBCUT PRN ×2 (09:39→21:22)
[2018-08-02] MEDS: Potassium Chlor TAB* 20 MEQ TAB.ER PO SCH (09:40)
[2018-08-02] MEDS: Gabapentin CAP(*) 100 MG PO SCH ×3 (09:40→21:21)
[2018-08-02] MEDS: DOXYcycline CAP(*) 100 MG PO SCH ×2 (09:42→21:19)
[2018-08-02] MEDS: FLUoxetine CAP* 20 MG PO SCH (09:42)
[2018-08-02] MEDS: FLUoxetine CAP* 10 MG PO SCH (09:42)
[2018-08-02] MEDS: amLODIPine TAB* 5 MG PO SCH (09:42)
[2018-08-02] MEDS: Metoprolol Succinate XL TAB* 50 MG PO SCH (09:42)
[2018-08-02] MEDS: Acetaminophen TAB* 325 MG PO SCH ×2 (09:42→21:20)
[2018-08-02] MEDS: DULoxetine DR CAP* 60 MG CAP.DR PO SCH (09:42)
[2018-08-02] MEDS: PTO: Mesalamine (NF) 1.2 GM TAB PO SCH (09:46)
--- NOTE | 2018-08-02 13:16 | CONS ---
CONSULTATION REPORT: DATE OF CONSULT: 08/02/18. REQUESTING PHYSICIAN: Dr. Sanchez. CONSULTING SERVICE: Infectious Disease. REASON FOR CONSULT: Escherichia coli cystitis and bacteremia. IMPRESSION: 1. Bacteremia severe headache. 2. Fever. 3. Fatigue. 4. Myalgia. 5. Found to have E. coli bacteremia due to cystitis. 6. Severe headache I think due to systemic infection. 7. She is leukopenic and had transaminitis, agree things like anaplasma are in the differential diagnosis; however, she would have to have both anaplasma and E. coli bacteremia, which I think is less likely. Most likely just due to systemic infection. 8. Leukopenia maybe acyclovir side effect. 9. Transaminitis, asymptomatic, mild persistent due to sepsis. 10. Chronic kidney disease. 11. Ulcerative colitis. RECOMMENDATIONS: 1. Agree with doxycycline, which covers the E. coli. We are planing on 10 more days that will also cover anaplasma; testing for which is pending. 2. Follow liver function tests. 3. Ultrasound of the kidney and bladder to rule out obstructive stone disease. HISTORY OF PRESENT ILLNESS: This is a 68-year-old woman with ulcerative colitis , admitted with fever, horrible headache that included photophobia, neck stiffness, getting worse and worse. She had a fever as well for a couple of days, decreased appetite. She came to the emergency room, had a lumbar puncture that showed no pleocytosis and normal glucose and protein. Herpes PCR negative. Spinal fluid Gram stain and culture negative. Blood cultures initially 2/4 growing E. coli. The urine culture growing E. coli both resistant to amp and intermediate to Augmentin and cefazolin. Her fever has resolved now. Her headache is much better almost gone. No neck stiffness or photophobia. Her appetite is coming back. She does not have flank pain. She has had urinary tract infection a couple of times over the years, none as severe as this that required hospitalization. No history of bladder or urinary tract surgeries or procedures. PAST MEDICAL HISTORY: 1. Chronic kidney disease, stage 3. 2. Hypertension. 3. Osteoporosis. 4. Arthritis. 5. Ulcerative colitis. 6. Asthma. 7. Seizure disorder. 8. Migraine headache. 9. Status post . 10. Hysterectomy. 11. Status post bilateral knee arthroplasty. 12. Status post carpal tunnel release. 13. Status post gastric bypass. 14. Status post hernia repair. 15. Status post tonsillectomy. MEDICATIONS: 1. Tylenol. 2. Doxycycline. 3. Amlodipine. 4. Duloxetine. 5. Fluoxetine. 6. Gabapentin. 7. Heparin subcutaneous injection. 8. Mesalamine. 9. Phenytoin. 10. Sumatriptan. ALLERGIES: TAPE, CODEINE, and SULFA. SOCIAL HISTORY: She lives in [place] with her . She has a couple of olden retrievers. She does spend some time outdoors at this time of year. No travel. FAMILY HISTORY: No recurrent infections. Mother had celiac and Barrett's disease. Father had multiple myeloma. REVIEW OF SYSTEMS: All negative on a 14-point review of systems, except as noted above. PHYSICAL EXAM: Vital Signs: Temperature is 37, heart rate 70, respiratory rate 18, blood pressure 120/70, oxygen saturation 99% on room air. In general, she is awake and not in distress. Neurologic: She is oriented x3. Follows all commands. HEENT: There is no conjunctival hemorrhage. Oropharynx without lesions. Neck is supple without mass. Heart is regular rate and rhythm without murmurs, rubs, or gallops. Lungs: Clear to auscultation bilaterally. Abdomen is soft, nontender, nondistended. Bowel sounds present. There is flank tenderness to palpation. Musculoskeletal: There is no spine tenderness to palpation or knee effusion. Skin: There is no rash. DIAGNOSTIC STUDIES/LAB DATA: White blood cell count 2.9, hemoglobin 12, platelets 243, creatinine is 0.9, ALT 88, bilirubin 0.2. HSV PCR negative, influenza PCR negative. Please see impressions and recommendations outlined above. Thanks for asking me to see Ms. Sanchez in consultation. [id number]/[facility] #: [id number] RICHARD
--- NOTE | 2018-08-02 16:45 | PN ---
Subjective Date of Service: 08/02/18 Interval History: Pt still with severe headache without imitrex. She thinks she may be able to manage at home as long as she has imitrex available. She states she does not have a ride home for tonight. Objective Active Medications: Acetaminophen (Tylenol Tab*) 650 mg PO Q4H PRN PRN Reason: FEVER/PAIN Last Admin: 07/30/18 05:57 Dose: 650 mg Acetaminophen (Tylenol Tab*) 975 mg PO BID [facility] Last Admin: 08/02/18 09:42 Dose: 975 mg Hydrocodone Bitart/Acetaminophen ([place] 5-325 Tab*) 1 tab PO Q6H PRN PRN Reason: PAIN Last Admin: 07/31/18 14:34 Dose: 1 tab Albuterol (Ventolin Hfa Inhaler*) 2 puff INH Q4HR PRN PRN Reason: SHORTNESS OF BREATH Amlodipine Besylate (Norvasc Tab*) 5 mg PO DAILY [facility] Last Admin: 08/02/18 09:42 Dose: 5 mg Doxycycline Hyclate (Vibramycin Cap(*)) 100 mg PO BID [facility] Last Admin: 08/02/18 09:42 Dose: 100 mg Duloxetine HCl (Cymbalta Cap*) 60 mg PO DAILY [facility] Last Admin: 08/02/18 09:42 Dose: 60 mg Fluoxetine HCl (Prozac Cap*) 20 mg PO DAILY [facility] Last Admin: 08/02/18 09:42 Dose: 20 mg Fluoxetine HCl (Prozac Cap*) 10 mg PO DAILY [facility] Last Admin: 08/02/18 09:42 Dose: 10 mg Gabapentin (Neurontin Cap(*)) 200 mg PO TID [facility] Last Admin: 08/02/18 14:42 Dose: 200 mg Heparin Sodium (Porcine) (Heparin Vial(*)) 5,000 units SUBCUT Q8HR [facility] Last Admin: 08/02/18 14:42 Dose: 5,000 units Meclizine HCl (Antivert Tab*) 25 mg PO Q8HR PRN PRN Reason: VERTIGO Mesalamine (Lialda (Nf)) 2.4 gm PO DAILY [facility] Last Admin: 08/02/18 09:46 Dose: Not Given Metoprolol Succinate (Toprol Xl Tab*) 50 mg PO DAILY [facility] Last Admin: 08/02/18 09:42 Dose: 50 mg Mometasone Furoate/Formoterol Fumar (Dulera 200/5 Mdi*) 2 puff INH BID [facility]; Protocol Last Admin: 08/02/18 08:06 Dose: 2 puff Morphine Sulfate (Morphine Vial*) 1 mg IV Q4H PRN PRN Reason: PAIN Last Admin: 07/31/18 14:32 Dose: 1 mg Ondansetron HCl (Zofran Inj*) 4 mg IV Q4H PRN PRN Reason: NAUSEA Last Admin: 07/31/18 06:05 Dose: 4 mg Oxycodone HCl (Roxycodone Tab*) 5 mg PO Q4H PRN PRN Reason: Pain breakthroughs only Last Admin: 07/31/18 15:36 Dose: 5 mg Phenytoin Sodium (Dilantin Cap(*)) 400 mg PO DAILY [facility] Last Admin: 08/02/18 09:39 Dose: 400 mg Potassium Chloride (Klor Con Er Tab*) 20 meq PO DAILY [facility] Last Admin: 08/02/18 09:40 Dose: 20 meq Sumatriptan Succinate (Imitrex Sq*) 6 mg SUBCUT Q12H PRN PRN Reason: Headache breakthroughs Last Admin: 08/02/18 09:39 Dose: 6 mg Vital Signs - 8 hr 08/02/18 08/02/18 08/02/18 09:40 11:55 14:14 Temperature 97.8 F Pulse Rate 61 Respiratory 16 18 16 Rate Blood Pressure 128/75 (mmHg) O2 Sat by Pulse 98 Oximetry 08/02/18 14:42 Temperature Pulse Rate Respiratory 16 Rate Blood Pressure (mmHg) O2 Sat by Pulse Oximetry Oxygen Devices in Use Now: None Appearance: Middlea aged female sitting up in bed, NAD Eyes: No Scleral Icterus Ears/Nose/Mouth/Throat: Mucous Membranes Moist Respiratory: Symmetrical Chest Expansion and Respiratory Effort, Clear to Auscultation Cardiovascular: NL Sounds; No Murmurs; No JVD, RRR, No Edema Abdominal: NL Sounds; No Tenderness; No Distention Extremities: No Clubbing, Cyanosis Skin: No Nodules or Sclerosis Neurological: Alert and Oriented x 3 Result Diagrams: 08/01/18 05:35 08/01/18 05:35 Microbiology and Other Data: Microbiology 07/28/18 11:39 Urine Culture - Preliminary Urine Escherichia Coli 07/28/18 10:53 Aerobic Blood Culture - Preliminary Blood Venous No Growth Day 1 Anaerobic Blood Culture - Preliminary No Growth Day 1 07/28/18 12:35 CSF Gram Stain (Tube 3) - Final Cerebral Spinal Fluid CSF Culture - Preliminary No Growth Day 1 07/28/18 10:34 Aerobic Blood Culture - Preliminary Blood Venous Escherichia Coli Anaerobic Blood Culture - Preliminary Escherichia Coli 07/28/18 14:14 Influenza Types A,B Antigen - Final Nasopharyngeal Specimen received for Influenza A/B Molecular testing Assess/Plan/Problems-Billing Ms Sanchez is a 68 yo F who has a h/o HTN, seizure disorder, stage III CKD and UC who presented to the ER with c/o headache. - Patient Problems (1) Headache Current Visit: Yes Status: Acute Code(s): R51 - HEADACHE SNOMED Code(s): 69271575 Comment: Unclear cause. Likely headache secondary to being acutely ill from sepsis secondary to Ecoli UTI and bacteremia. Continue prn imitrex. If headache still present in 1 week I have recommended she follow up with neurology. (2) E. coli UTI Current Visit: Yes Status: Acute Code(s): N39.0 - URINARY TRACT INFECTION, SITE NOT SPECIFIED; B96.20 - UNSP ESCHERICHIA COLI THE CAUSE OF DISEASES CLASSD ELSR SNOMED Code(s): 400175986 Comment: Pt with E coli UTI and bacteremia present on admission. She was septic by sepsis 2 criteria but did not have any clear end organ dysfunction except she did have a bump in her LFTs which may have elevated secondary to sepsis. Will need Abx therapy for 14 days. Continue doxycycline for 10 more days. (3) Elevated LFTs Current Visit: Yes Status: Acute Code(s): R94.5 - ABNORMAL RESULTS OF LIVER FUNCTION STUDIES SNOMED Code(s): 354184882 Comment: LFTs have fluctuated some since admission (down then back up slightly today). ? secondary to sepsis secondary to UTI. Liver with mild hepatomegaly. Follow up LFTs tomorrow. Can likely go home even if they have not normalized. (4) CKD (chronic kidney disease) Current Visit: Yes Status: Acute Code(s): N18.9 - CHRONIC KIDNEY DISEASE, UNSPECIFIED SNOMED Code(s): 735695118 Comment: Creatinine at baseline. Continue to monitor intermittently. (5) Hypertension Current Visit: Yes Status: Acute Code(s): I10 - ESSENTIAL (PRIMARY) HYPERTENSION SNOMED Code(s): 39460370 Comment: BP under control on home medication regimen. (6) DVT prophylaxis Current Visit: Yes Status: Acute Code(s): YNK4368 - SNOMED Code(s): 181880130 Comment: SQ heparin (7) Full code status Current Visit: Yes Status: Acute Code(s): Z78.9 - OTHER SPECIFIED HEALTH STATUS SNOMED Code(s): 187549762 Status and Disposition: d/c home 08/03/18
[2018-08-03] MEDS: Heparin VIAL(*) 5000 UNITS/ML VIAL (FIVE THOUSAND) SUBCUT SCH (05:37)
[2018-08-03 07:07] LABS: ABS Basophils 0 10^3/ul (0-0.2); ABS Eosinophils 0.1 10^3/ul (0-0.6); ABS Lymphocytes 0.9 10^3/ul (1.0-4.8); ABS Monocytes 0.3 10^3/ul (0-0.8); ABS Neutrophils 2.7 10^3/ul (1.5-7.7); ABS Nucleated RBC 0 10^3/ul; Eosinophil % 2.8 %; Hematocrit 37 % (35-47); Lymphocyte % 21.2 %; Mean Corpuscular HGB Conc 33 g/dl (31-36); Mean Corpuscular Hemoglobin 31 pg (27-31); Mean Corpuscular Volume 96 fL (80-97); Mean Platelet Volume 7.3 fL (7.4-10.4); Nucleated Red Blood Cells % 0.1; Platelet Count 298 10^3/ul (150-450); Red Blood Count 3.85 10^6/ul (4.00-5.40); Red Cell Distribution Width 15 % (10.5-15)
[2018-08-03 07:24] VITALS: BP 128/73
[2018-08-03 07:25] LABS: EGFR Non-African American 51.3 (>60)
[2018-08-03] MEDS: Mometasone/Formoter 200/5 MDI INH SCH (08:12)
[2018-08-03] MEDS: Potassium Chlor TAB* 20 MEQ TAB.ER PO SCH (08:40)
[2018-08-03] MEDS: amLODIPine TAB* 5 MG PO SCH (08:40)
[2018-08-03] MEDS: FLUoxetine CAP* 20 MG PO SCH (08:40)
[2018-08-03] MEDS: FLUoxetine CAP* 10 MG PO SCH (08:40)
[2018-08-03] MEDS: Acetaminophen TAB* 325 MG PO SCH (08:40)
[2018-08-03] MEDS: oxyCODONE TAB* 5 MG TAB PO PRN (08:40)
[2018-08-03] MEDS: DOXYcycline CAP(*) 100 MG PO SCH (08:41)
[2018-08-03] MEDS: Metoprolol Succinate XL TAB* 50 MG PO SCH (08:41)
[2018-08-03] MEDS: Gabapentin CAP(*) 100 MG PO SCH (08:41)
[2018-08-03] MEDS: Phenytoin CAP(*) 100 MG CAP.ER PO SCH (08:41)
[2018-08-03] MEDS: DULoxetine DR CAP* 60 MG CAP.DR PO SCH (08:41)
[2018-08-03] MEDS: PTO: Mesalamine (NF) 1.2 GM TAB PO SCH (08:44)
--- NOTE | 2018-08-03 11:38 | DS ---
CC: Dr. Connor.* DISCHARGE SUMMARY: DATE OF ADMISSION: 07/28/18 DATE OF DISCHARGE: 08/03/18 (this is being dictated in advance). PRIMARY CARE PROVIDER: Dr. Connor. PRINCIPAL DIAGNOSES: 1. Sepsis secondary to E. coli urinary tract infection and bacteremia. 2. Severe headache, likely secondary to sepsis. 3. Elevated liver function tests - likely secondary to sepsis. SECONDARY DIAGNOSES: 1. Hypertension. 2. Stage 3 chronic kidney disease. 3. Ulcerative colitis. 4. Asthma. 5. Arthritis. DISCHARGE MEDICATIONS: 1. Mesalamine 2.4 g p.o. daily. 2. Erythromycin ointment applied to both eyes t.i.d. 3. Amlodipine 5 mg p.o. daily. 4. Lasix 20 mg p.o. daily. 5. Calcium citrate 2 wafers p.o. t.i.d. 6. Potassium chloride 20 mEq p.o. daily. 7. Fluoxetine 30 mg p.o. daily. 8. Magnesium oxide 500 mg p.o. daily. 9. Ascorbic acid 500 mg p.o. daily. 10. Phenytoin 400 mg p.o. daily. 11. Poly-Iron 150 1 cap p.o. daily. 12. Zinc gluconate 50 mg p.o. daily. 13. Vitamin D3 5000 units p.o. daily. 14. Metoprolol XL 50 mg p.o. daily. 15. Aspirin 81 mg p.o. daily. 16. Symbicort 160 - 4.5, 2 puffs inhaled b.i.d. 17. [place] 5/325 1 tab p.o. q.8 hours p.r.n. pain. 18. ProAir RespiClick 2 puffs inhaled q.4 hours shortness of breath. 19. Vitamin B12 1000 mcg IM monthly. 20. Meclizine 25 mg p.o. q.8 hours p.r.n. dizziness. 21. Duloxetine DR 60 mg p.o. daily. 22. Doxycycline 100 mg p.o. b.i.d. x19 doses. 23. Sumatriptan 50 mg p.o. daily p.r.n. headache, may repeat in 1 hour if headache is still present. HOSPITAL COURSE: Ms. Sanchez is a 68-year-old female who presented to the emergency room on 07/28/18 with complaints of headache and fever. The patient was admitted for evaluation of the headache, which was felt to be possibly meningitis. The patient underwent lumbar puncture, which revealed 3.5 white blood cells, normal glucose and a normal protein. She was started on ceftriaxone 2 g IV q.12 hours and acyclovir. Ultimately, the cultures from the CSF remain negative. Currently pending are EBV, DNA PCR, ehrlichia and anaplasma PCR, West Nile virus, IgG and IgM. The patient continues to have headache, but generally it improves with Imitrex, which she has been taking twice daily. The patient was ultimately found to be likely septic secondary to an E. coli urinary tract infection and bacteremia. The patient had 2/4 bottles positive from her blood cultures on admission. The patient initially was on ceftriaxone, which the E. coli was sensitive to. However, this was subsequently changed to doxycycline 100 mg p.o. twice daily. The patient will continue on this for another 9 days. The patient was seen in consultation by Dr. Slade for the concerns of meningitis. He felt that likely the headache was secondary to the sepsis from the E. coli UTI and bacteremia. It is his suspicion that the headaches will ultimately resolve without any further intervention. The patient has been instructed to contact the neurology office if she has persistent headache beyond a week after discharge. The patient also was found to have elevated LFTs during the course of her hospitalization. They did begin to trend down; however. then subsequently trended back up. They will be rechecked on 08/03/18 prior to discharge; however, the elevated LFTs would not prohibit her discharge home unless they are markedly worse. She did undergo a liver ultrasound, which revealed the liver being at the upper limits of normal size. On the day prior to discharge, the patient was awake, alert, and oriented, sitting up in bed, in no acute distress. Her cardiac exam revealed a normal S1 , S2 with a regular rate and rhythm. Her lungs were clear. Her abdomen is soft , nontender. She was felt to be stable for discharge home on 08/03/18, when she could have a ride. FOLLOWUP CONCERNS: The patient is being discharged home on 08/03/18. ACTIVITIES: As tolerated. DIET: Regular. CONDITION ON DISCHARGE: Stable. The patient has been instructed to follow up with Dr. Connor in the next 4 to 7 days and to follow up with neurology if her headache fails to resolve. TIME SPENT: 35 minutes was spent discharging this patient. [id number]/[facility] #: [id number] RICHARD
--- NOTE | 2018-08-03 16:30 | PN ---
Hospitalist Progress Note Date of Service: 08/03/18 Examined patient at bedside. She reports feeling well this morning and is anxious to return home. She does report a 5/10 headache, though notes this is significantly improved and she feels comfortable managing this at home. She did request that her prescriptions be sent to the employee pharmacy so she did not have to stop at her pharmacy on the way home. Scripts were sent. Patient denied any further complaints or needs and is stable for discharge.
== END 2018-08-03 10:45 | disposition home or self-care (01) | DRG 720 ==
LOC: ED 09:20 → MED 13:04 → OBSVTOIN 07-30 10:31
PROVIDERS: ADMIT Internal Medicine; ATTEND Hospitalist
DX: A41.51 Sepsis due to Escherichia coli [E. coli] (principal); N39.0 Urinary tract infection, site not specified; K51.90 Ulcerative colitis, unspecified, without complications; B96.20 Unspecified Escherichia coli [E. coli] as the cause of diseases classified elsewhere; R94.5 Abnormal results of liver function studies; I12.9 Hypertensive chronic kidney disease with stage 1 through stage 4 chronic kidney disease, or unspecified chronic kidney disease; N18.3 Chronic kidney disease, stage 3 (moderate); G40.909 Epilepsy, unspecified, not intractable, without status epilepticus; J45.909 Unspecified asthma, uncomplicated; G43.909 Migraine, unspecified, not intractable, without status migrainosus; M81.0 Age-related osteoporosis without current pathological fracture; M19.90 Unspecified osteoarthritis, unspecified site; R74.0 Nonspecific elevation of levels of transaminase and lactic acid dehydrogenase [LDH]; Z96.653 Presence of artificial knee joint, bilateral; Z79.82 Long term (current) use of aspirin; Z79.899 Other long term (current) drug therapy; Z88.5 Allergy status to narcotic agent; Z88.2 Allergy status to sulfonamides; Z91.048 Other nonmedicinal substance allergy status; Z83.79 Family history of other diseases of the digestive system; Z80.8 Family history of malignant neoplasm of other organs or systems; Z98.84 Bariatric surgery status
CPT/HCPCS: 36415; 70450; 70496; 70498; 71046; 76705; 76770; 80048; 80053; 80074; 80076; 80185; 80307; 81003; 81015; 82375; 82945; 83605; 83735; 84100; 84157; 85025; 85060; 85610; 85652; 85730; 86705; 86709; 86788; 86789; 86803; 87040; 87070; 87077; 87086; 87186; 87205; 87529; 87798; 87799; 89051; 90686; 94640; 99284; A9270-GY; G0378; G8978-GP-CI; G8979-GP-CI; G8980-GP-CI; J0133; J0696; J1644; J1885; J2270; J2405; J2765; J3030; J3370; J3475; Q9967

== ENCOUNTER 2018-11-18 14:24 | Emergency (ER) | payer BC, MEDICARE ==
[2018-11-18 14:44] VITALS: BP 129/84
--- NOTE | 2018-11-18 14:46 | UC ---
Complaint Female HPI - HPI Summary HPI Summary: 68-year-old woman with a chief complaint of urinary urgency frequency and dysuria. About 2 days. No fevers or chills. No abdominal pain. No flank pain. In July 2018 the patient had a UTI and became septic from it. There is also questionable whether or not she had meningitis. Feels well otherwise today. - History Of Current Complaint Stated Complaint: POSS UTI Time Seen by Provider: 11/18/18 14:43 - Allergies/Home Medications Allergies/Adverse Reactions: Allergies Allergy/AdvReac Type Severity Reaction Status Date / Time Adhesive Tape Allergy Intermediate Blisters Verified 11/18/18 14:44 Sulfa (Sulfonamide Allergy Rash Verified 11/18/18 14:44 Antibiotics) codeine AdvReac GI Upset Verified 11/18/18 14:44 HAIR/NAIL SUPPLEMENT Allergy Rash And Uncoded 11/18/18 14:44 Itching Home Medications: Home Medications Calcium Citrate TAB* [Citracal TAB*] 1,200 mg PO DAILY 11/18/18 [History Confirmed 11/18/18] PMH/Surg Hx/FS Hx/Imm Hx Previously Healthy: Yes - Hx Meningitis from UTI Cardiovascular History: Hypertension Psychological History: Depression - Surgical History Surgical History: Yes Surgery Procedure, Year, and Place: BILATERAL knee replacement, hysterectomy, 2 c-sections, bilat carpal tunnel x2, appy, gastric bypass, multiple hernia repair 06/2015. VARICOSE VEIN SURG - Family History Known Family History: Positive: None Negative: Cardiac Disease, Hypertension, Diabetes - Social History Alcohol Use: Rare Substance Use Type: None Smoking Status (MU): Never Smoked Tobacco Household Exposure Type: Cigarettes - Immunization History Most Recent Influenza Vaccination: 08/03/18 Most Recent Tetanus Shot: unknown Most Recent Pneumonia Vaccination: current Review of Systems All Other Systems Reviewed And Are Negative: Yes Constitutional: Positive: Negative Skin: Positive: Negative Eyes: Positive: Negative ENT: Positive: Negative Respiratory: Positive: Negative Cardiovascular: Positive: Negative Gastrointestinal: Positive: Negative Genitourinary: Positive: Dysuria, Frequency, Urgency Motor: Positive: Negative Neurovascular: Positive: Negative Musculoskeletal: Positive: Negative Neurological: Positive: Negative Psychological: Positive: Negative Is Patient Immunocompromised?: No Physical Exam Triage Information Reviewed: Yes Appearance: Well-Appearing, No Pain Distress, Well-Nourished Vital Signs Reviewed: Yes Eye Exam: Normal Eyes: Positive: Conjunctiva Clear ENT: Positive: Pharynx normal Neck exam: Normal Neck: Positive: Supple Respiratory: Positive: Lungs clear, Normal breath sounds, No respiratory distress Cardiovascular: Positive: RRR Abdomen Description: Positive: Nontender, Soft. Negative: CVA Tenderness (R), CVA Tenderness (L) Bowel Sounds: Positive: Present Musculoskeletal Exam: Normal Musculoskeletal: Positive: Strength Intact, ROM Intact Neurological Exam: Normal Neurological: Positive: Alert, Muscle Tone Normal Psychological Exam: Normal Psychological: Positive: Age Appropriate Behavior Skin Exam: Normal Complaint Female Dx - Course Course Of Treatment: The Escherichia coli that cause the sepsis in July 2019 is susceptible to tetracycline and ceftriaxone. In the hospital patient was treated with ceftriaxone and she was discharged home on doxycycline. I discussed the urine results with the patient in the plan today is to treat with doxycycline 100 mg by mouth twice a day the 7 days. Patient knows that if she gets worse she stated reevaluated right away. Urine culture pending. Will F/U with Urology as patient wishes to avoid further UTIs if possible. - Differential Dx/Diagnosis Provider Diagnosis: UTI (urinary tract infection) Discharge - Sign-Out/Discharge Documenting (check all that apply): Patient Departure All imaging exams completed and their final reports reviewed: No Studies - Discharge Plan Condition: Stable Disposition: HOME Prescriptions: DOXYcycline CAP(*) [DOXYcycline 100MG CAP(*)] 100 mg PO BID #14 cap Patient Education Materials: Urinary Tract Infection in Women (ED) Referrals: Bjorn Connor MD [Primary Care Provider] - Tanner Aguilera MD [Medical Doctor] - Mehul Barton MD [Medical Doctor] - - Billing Disposition and Condition Condition: STABLE Disposition: Home
--- NOTE | 2018-11-21 08:38 | UC ---
- Progress Note Progress Note: 11/21/2018 Urine culture final reports: no growth Please call back patient and notify her of results. Advised to stop Doxycycline PO or f/u w/ Urologist or PCP Thank you Angie Cope PA-C Course/Dx - Diagnoses Provider Diagnoses: UTI (urinary tract infection) Discharge - Sign-Out/Discharge Documenting (check all that apply): Post-Discharge Follow Up All imaging exams completed and their final reports reviewed: No Studies - Discharge Plan Condition: Stable Disposition: HOME Prescriptions: DOXYcycline CAP(*) [DOXYcycline 100MG CAP(*)] 100 mg PO BID #14 cap Patient Education Materials: Urinary Tract Infection in Women (ED) Referrals: Tanner Aguilera MD [Medical Doctor] - Bjorn Connor MD [Primary Care Provider] - Mehul Barton MD [Medical Doctor] - - Billing Disposition and Condition Condition: STABLE Disposition: Home
== END 2018-11-18 15:15 | disposition home or self-care (01) ==
LOC: UCEAST 14:24
DX: N39.0 Urinary tract infection, site not specified (principal); I10 Essential (primary) hypertension; Z91.09 Other allergy status, other than to drugs and biological substances; Z88.2 Allergy status to sulfonamides; Z88.5 Allergy status to narcotic agent
CPT/HCPCS: 81003; 87086; 99212; G0463

== ENCOUNTER 2019-02-02 12:45 | Emergency (ER) | payer MEDICARE ==
[2019-02-02 13:58] VITALS: BP 127/79
--- NOTE | 2019-02-02 14:05 | UC ---
Skin Complaint HPI - HPI Summary HPI Summary: 68 yo female presents with red, swollen, and hard lumps to right inner thigh for the last 4 days. She tells me that 4 days ago her dog jumped and landed on this area and the next day developed some redness, swelling, and firmness to the area which has persisted into today. She has mild pain with touching the areas. She is concerned this may be a blood clot. She denies SOB, calf pain, recent travel, fever, or chills. - History of Current Complaint Chief Complaint: UCGeneralIllness Time Seen by Provider: 02/02/19 14:04 Stated Complaint: RED SWOLLEN HARD SPOT ON LEG Hx Obtained From: Patient Onset/Duration: Sudden Onset Onset Severity: Mild Current Severity: Moderate Pain Intensity: 7 Pain Scale Used: 0-10 Numeric - Allergy/Home Medications Allergies/Adverse Reactions: Allergies Allergy/AdvReac Type Severity Reaction Status Date / Time Adhesive Tape Allergy Intermediate Blisters Verified 02/02/19 13:58 Sulfa (Sulfonamide Allergy Rash Verified 02/02/19 13:58 Antibiotics) codeine AdvReac GI Upset Verified 02/02/19 13:58 HAIR/NAIL SUPPLEMENT Allergy Rash And Uncoded 02/02/19 13:58 Itching PMH/Surg Hx/FS Hx/Imm Hx - Additional Past Medical History Additional PMH: UC Cardiovascular History: Hypertension Respiratory History: Asthma Neurological History: Migraine Psychological History: Anxiety, Depression - Surgical History Surgical History: Yes Surgery Procedure, Year, and Place: BILATERAL knee replacement, hysterectomy, 2 c-sections, bilat carpal tunnel x2, appy, gastric bypass, multiple hernia repair 06/2015. VARICOSE VEIN SURG - Family History Known Family History: Positive: None Negative: Cardiac Disease, Hypertension, Diabetes - Social History Occupation: Retired Alcohol Use: Rare Substance Use Type: None Smoking Status (MU): Never Smoked Tobacco Household Exposure Type: Cigarettes - Immunization History Most Recent Influenza Vaccination: 08/03/18 Most Recent Tetanus Shot: unknown Most Recent Pneumonia Vaccination: current Review of Systems All Other Systems Reviewed And Are Negative: Yes Constitutional: Positive: Negative Skin: Positive: Other - Right thigh red, firm, swollen lumps Respiratory: Positive: Negative Cardiovascular: Positive: Negative Neurovascular: Positive: Negative Musculoskeletal: Positive: Negative Neurological: Positive: Negative Psychological: Positive: Negative Physical Exam - Summary Physical Exam Summary: GENERAL: NAD. WDWN. No pain distress. SKIN: RIGHT medial distal thigh with mild erythema, warmth, and 3-4 palpable firm nodules just under superficial skin. Varicose veins present. No streaking, drainage, induration, or fluctance appreciated. CHEST: No accessory muscle use. Breathing comfortably and in no distress. CV: Pulses intact PT and DP. Cap refill <2seconds MSK: negative liang sign. NTTP right calf NEURO: Alert. Sensations intact and symmetric B/L LEs PSYCH: Age appropriate behavior. Triage Information Reviewed: Yes Vital Signs: Initial Vital Signs Temp 97.9 F 02/02/19 13:55 Pulse 63 02/02/19 13:55 Resp 16 02/02/19 13:55 BP 127/79 02/02/19 13:55 Pulse Ox 100 02/02/19 13:55 Vital Signs Reviewed: Yes Course/Dx - Course Course Of Treatment: US: IMPRESSION: NO EVIDENCE OF DEEP VENOUS THROMBOSIS IS IDENTIFIED. 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 Discussed with pt. Encouraged ambulation and cool compress to the area. Will start her on keflex given her comorbidities and risk for cellulitis. Advised to be rechecked by PCP in 1 week. - Diagnoses Provider Diagnosis: Superficial thrombophlebitis of right leg Discharge - Sign-Out/Discharge Documenting (check all that apply): Patient Departure All imaging exams completed and their final reports reviewed: Yes - Discharge Plan Condition: Stable Disposition: HOME Prescriptions: Cephalexin CAP* [Keflex CAP*] 500 mg PO BID #10 cap Patient Education Materials: Superficial Thrombophlebitis (ED) Referrals: Kristi Bridges MD [Primary Care Provider] - Additional Instructions: If you develop a fever, shortness of breath, chest pain, new or worsening symptoms - please call your PCP or go to the ED immediately. 1) apply a cool compress to the arm 2) Continue walking and going about your daily activities 3) I recommend you see your primary doctor in 1 week for a recheck of the area - Billing Disposition and Condition Condition: STABLE Disposition: Home
== END 2019-02-02 15:35 | disposition home or self-care (01) ==
LOC: UCEAST 12:45
DX: I80.8 Phlebitis and thrombophlebitis of other sites (principal); I10 Essential (primary) hypertension; F41.9 Anxiety disorder, unspecified; F32.9 Major depressive disorder, single episode, unspecified; Z88.5 Allergy status to narcotic agent; Z88.2 Allergy status to sulfonamides
CPT/HCPCS: 99212; G0463